=== PATIENT | male | born 1965 | race Caucasian/White ===

== ENCOUNTER 2016-10-28 09:49 | Inpatient (IN) | payer OTHER ==
[2016-10-22 11:28] VITALS: BMI 28.0
--- NOTE | 2016-10-22 12:43 | DIAGNOSTIC IMAGING REPORT ---
CHEST 2 VIEWS ROUTINE CLINICAL HISTORY: 50 years-old Male presenting with preoperative assessment. TECHNIQUE: PA and lateral views of the chest were obtained. COMPARISON: None. FINDINGS: Cardiomediastinal silhouette normal. Elevation of the left hemidiaphragm. Lungs and pleural spaces clear. Osseous structures normal. Upper abdomen normal. IMPRESSION: 1. No acute cardiopulmonary disease. Electronically signed by: Carlo Tiwari M.D. 10/22/2016 12:42 PM Dictated Date/Time: 10/22/2016 12:41 PM
[2016-10-22 12:55] LABS: BASO % 0.2 %; BASO ABS # 0.01 K/uL (0-0.2); COMPLETE YES; EOS % 0.9 %; HEMATOCRIT 47.4 % (42-52); IG% 0.2 %; LYMPH % 34.2 %; LYMPH ABS # 2.01 K/uL (1.2-3.4); MEAN CELL VOLUME 97.5 fL (80-100); MEAN CORPUSCULAR HEMOGLOBIN 31.3 pg (25-34); MEAN CORPUSCULAR HGB CONC 32.1 g/dl (32-36); MEAN PLATELET VOLUME 9.8 fL (7.4-10.4); MONO % 8.2 %; NEUT % 56.3 %; PLATELET COUNT 203 K/uL (130-400); RED BLOOD COUNT 4.86 M/uL (4.7-6.1); WHITE BLOOD COUNT 5.88 K/uL (4.8-10.8)
[2016-10-22 13:02] LABS: URINE APPEARANCE CLEAR (CLEAR); URINE BILIRUBIN NEG (NEG); URINE COLOR YELLOW; URINE NITRITE NEG (NEG); URINE SPECIFIC GRAVITY 1.009 (1.000-1.030); UROBILINOGEN NEG (NEG)
[2016-10-22 13:11] LABS: PROTHROMBIN TIME (PATIENT) 10.7 SECONDS (9.0-12.0)
[2016-10-22 13:14] LABS: MANUAL MICROSCOPIC REQUIRED? NO; REVIEW REQ? NO
[2016-10-22 13:24] LABS: BUN/CREATININE RATIO 11.3 (10-20); CALCIUM 9.2 mg/dl (8.5-10.1); CREATININE 0.97 mg/dl (0.60-1.40); POTASSIUM 4.4 mmol/L (3.5-5.1)
[2016-10-22 13:52] LABS: ESTIMATED AVERAGE GLUCOSE 117 mg/dl; HA1C FLAG Normal (Normal)
--- NOTE | 2016-10-27 12:13 | HISTORY & PHYSICAL EXAMINATION ---
DATE OF ADMISSION: 10/28/2016 CHIEF COMPLAINT: Left knee pain. HISTORY OF PRESENT ILLNESS: The patient is a 50-year-old gentleman with known osteoarthritis about his bilateral knees, left worse than right. He recently completed a series of viscosupplementation injections without relief. 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 He has ongoing pain and disability with activities of daily living and now desires to proceed with left total knee arthroplasty. PAST MEDICAL HISTORY: Denies. PAST SURGICAL HISTORY: Hernia repair, right foot, perforated ulcer, bilateral knee arthroscopy for meniscal pathology. MEDICATIONS: None. ALLERGIES: HE IS UNABLE TO TAKE ASPIRIN PRODUCTS DUE TO HISTORY OF PERFORATED ULCER. SOCIAL HISTORY AND REVIEW OF SYSTEMS: Noncontributory. PHYSICAL EXAMINATION: GENERAL: Well-nourished, well-developed male who appears his stated age. HEENT: Normocephalic, atraumatic, extraocular movements intact, oropharynx pink and moist. NECK: Supple without adenopathy. LUNGS: Clear to auscultation bilaterally. HEART: Regular rate and rhythm. ABDOMEN: Soft, nontender, nondistended. EXTREMITIES: The upper extremities are within normal limits. The bilateral knees have a slight varus alignment. He complains primarily of medial compartment pain. His range of motion is from 0 to 125 degrees. He has mild crepitus with range of motion. X-RAYS: X-rays were reviewed. He has near bone on bone arthritis of the medial compartment on the flexion view. He has mild degenerative changes about the patellofemoral joint as well. ASSESSMENT: Left knee degenerative joint disease. PLAN: Risks versus benefits were discussed. Consent was obtained. The patient's primary care physician is Dr. Newby. Will proceed with left total knee arthroplasty upon preoperative workup and medical clearance.
[2016-10-28] VITALS (8 sets, daily range): BP systolic 121–145; BP diastolic 80–99; PULSE 52–73; TEMP 36.2–37; O2SAT 95–99; Ht 182.9 cm; Wt 94.3 kg
[~2016-10-28] VITALS: Ht 182.9 cm; Wt 94.3 kg
[2016-10-28] MEDS: TRANEXAMIC ACID INJ 1,000 MG in SODIUM CHLORIDE 0.9% 100ML 100 ML IV SCH ×2 (06:30→11:25)
[~2016-10-28 09:49] MED LIST: ACETAMINOPHEN 500 MG TAB PO SCH; BUPIVACAINE 0.5 % 5 MG/1 ML PF 10ML VIAL ONE; CEFAZOLIN 2000 MG/60 ML D5W 60 ML IV SCH; DEXAMETHASONE 4 MG TAB PO SCH; FAMOTIDINE 20 MG TAB PO SCH; GABAPENTIN 300 MG CAP PO SCH; LACTATED RINGER'S 1000ML 1,000 ML IV SCH; LACTATED RINGER'S 1000ML 500 ML IV ONE; LACTATED RINGER'S 1000ML IV SCH; METOCLOPRAMIDE HCL 10 MG TAB PO SCH; ROPIVACAINE 0.5% 5 MG/ML 30 ML VIAL ONE; ROPIVACAINE 5MG/ML 30 ML 150 MG, BUPIVACAINE/EPINEPHR 0.5% MPF 30 ML, KETOROLAC TROMETH... INFIL SCH
--- NOTE | 2016-10-28 10:00 | History & Physical Bridge Note ---
H&P Re-Evaluation Bridge Note: I have examined the patient, reviewed the History & Physical and in the interval since the performance of the History & Physical I have noted the following changes of clinical significance: No changes noted
[2016-10-28] MEDS ORDERED: FENTANYL CITRATE INJ 50 MCG/1 ML 2 ML VIAL ONE (10:17)
[2016-10-28] MEDS ORDERED: PROPOFOL IV EMULSION 10 MG/ML 20 ML VIAL IV ONE ×2 (10:17→11:58)
[2016-10-28] MEDS ORDERED: MIDAZOLAM HCL 1 MG/ML 2ML VIAL ONE ×2 (10:17→11:20)
[2016-10-28] MEDS ORDERED: POVIDONE-IODINE OP SOLN 30 ML BTL ONE (11:33)
[2016-10-28] MEDS ORDERED: ORTHO JOINT ANESTHETIC ONE (11:33)
[2016-10-28] MEDS ORDERED: BACITRACIN 50000 UNIT VIAL ONE (11:34)
--- NOTE | 2016-10-28 12:53 | [facility] Post Operative Brief Note ---
Immediate Operative Summary Operative Date Oct 28, 2016. Pre-Operative Diagnosis Left knee degenerative joint disease Post-Operative Diagnosis same Procedure(s) Performed Left Total Knee Arthroplasty Surgeon Dr. Blanchard Fisher Trot Line Surgeon(s) Jagjit De La Fuente PA-C Estimated Blood Loss 10 ML Findings Bone on bone djd medial compartment Specimens a. left knee bone and tissue Complication(s) None Disposition Recovery Room / PACU
[2016-10-28] MEDS ORDERED: ATROPINE SULFATE 0.1 MG/ML 5ML SYR IV PRN (13:30)
[2016-10-28] MEDS ORDERED: PHENYLEPHRINE 100MCG/ML 5ML SYR IV PRN (13:30)
[2016-10-28] MEDS ORDERED: ONDANSETRON INJ 2 MG/ML 2 ML VIAL IV PRN ×2 (13:30→13:45)
[2016-10-28] MEDS ORDERED: EpHEDrine SULFATE INJ 50 MG/ML AMP IV PRN (13:30)
[2016-10-28] MEDS ORDERED: HYDROmorphone INJ 2 MG/ML SYR/VIAL IV PRN (13:30)
[2016-10-28] MEDS ORDERED: ALUMINUM/MAGNESIUM/SIMETH (MAALOX MAX) 30 ML UDC PO PRN (13:45)
[2016-10-28] MEDS ORDERED: MoRPHine SULFATE 2 MG/ML CARP IV PRN (13:45)
[2016-10-28] MEDS ORDERED: TAMSULOSIN HCL 0.4 MG CAP PO PRN (13:45)
[2016-10-28] MEDS ORDERED: MAGNESIUM HYDROXIDE SUSP 30 ML UDC PO PRN (13:45)
[2016-10-28] MEDS ORDERED: BISACODYL 10 MG SUPP PR PRN (13:45)
--- NOTE | 2016-10-28 14:04 | Anesthesiology Progress Note ---
Anesthesia Post Op Note Date & Time Oct 28, 2016 at 14:04 Vital Signs Pain Intensity: 0 Vital Signs Past 12 Hours Date Time Temp Pulse Resp B/P (MAP) Pulse Ox O2 Delivery O2 Flow Rate FiO2 10/28/16 14:00 63 20 134/107 98 Nasal Cannula 2 10/28/16 13:50 67 18 138/96 97 Oxymask 10 10/28/16 13:40 63 16 106/73 100 Oxymask 10 10/28/16 13:30 36.2 60 13 104/63 98 Oxymask 10 10/28/16 10:15 37 57 18 145/99 97 Room Air Notes Mental Status: alert / awake / arousable, participated in evaluation Pt Amnestic to Procedure: Yes Nausea / Vomiting: adequately controlled Pain: adequately controlled Airway Patency, RR, SpO2: stable & adequate BP & HR: stable & adequate Hydration State: stable & adequate Anesthetic Complications: no major complications apparent
--- NOTE | 2016-10-28 14:15 | OPERATIVE REPORT ---
DATE OF OPERATION: 10/28/2016 PREOPERATIVE DIAGNOSIS: Osteoarthritis, left knee. POSTOPERATIVE DIAGNOSIS: Osteoarthritis, left knee. PROCEDURE: Left Triathlon total knee arthroplasty, cementless. SURGEON: Dr. Blanchard. SUPERVISOR FIBERGLASS BOAT ASSEMBLY: MICHAEL Em ANESTHESIA: Genera. COMPLICATIONS: None. IMPLANTS USED: Femoral size 6 cementless, tibial size 5 cementless, tibial poly 11, and patella 36 cemented. OPERATION AND FINDINGS: Following induction of general anesthesia, the patient's left leg was prepped and draped in the usual sterile manner. Limb was exsanguinated with an Esmarch bandage and tourniquet was inflated to 350 mmHg. A longitudinal incision was made anteriorly. Subcutaneous tissue was sharply dissected. Electrocautery was used for hemostasis. Prepatellar bursa was incised and median parapatellar incision was performed. Patella was everted and the knee was flexed. Fat pad was removed to aid in visualization and the anterior and posterior cruciate ligaments were removed. The medial face of the tibia was cleared of soft tissue first with a Bovie and a Thomas elevator. This tissue was retracted posteriorly using a blunt Hohmann. A Welch retractor was used to expose the synovium above on the anterior aspect of the femur and this was removed down to bone. The PSI guide was placed on the distal femur and two pins were placed anteriorly and kept in position and two additional pins were placed distally and removed. The distal femoral cutting block was placed in position and the distal femoral cut was used in the +0 setting. Next, the cutting block was removed and the femoral 6 block was placed in the distal end of the femur. Care was taken to ensure appropriate external rotation and feeler gauge was used to ensure no notching would occur. The femoral block was centered on the distal femur and in the medial and lateral direction and was fixed using two bone screws. The gold pins were then removed. The oscillating saw was used to create the bone cuts and the distal femoral cutting block was removed and the reciprocating saw was used to further trim the femoral cuts as well as a deep in the area for the trochlear groove. Next, posterior condyle remnants were removed. Following this, a meniscal clamp and knife were utilized to remove the anterior portion of both medial and lateral meniscus. The proximal tibia PSI guide was placed into position and the proximal tibial cutting guide was screwed into position. The extra medullary alignment guide was utilized to ensure appropriate alignment. The proximal tibia was cut and the proximal tibial cutting block was removed and this bone fragment was removed. The appropriate guide was used to perform the notch cut on the distal femur and a lamina customer relationship specialist and a cochlear knife were utilized to finish both medial and lateral meniscectomies to remove any remnants of the posterior or anterior cruciate ligaments. Following this, the distal femoral component was impacted into position and blunt Fredy was used to sublux the tibia anteriorly. The proximal tibia was sized and a 5 cementless tibial tray was chosen as the size to be used. This was put into position and appropriate external rotation and a double check with extramedullary alignment guide was performed. The canal for the tibial stem was prepared first with a 17 mm drill and then the punch and a mallet and the trial tibial poly was placed. A 11 was chosen the size to be used. It was brought to extension and the patella was prepared with the patellar reamer. A 36 cemented component was chosen the size to be used. The trial component was placed and knee was taken through a full range of motion and there was found to be no lateral subluxation of the tibia. No lateral release was required. The trials were all removed. The final components were obtained and assembled. The wound was irrigated and closed over a Hemovac drain. #1 Vicryl was used to close the extensor mechanism. Subcutaneous tissues closed using 0 Dexon. Skin was closed with jesús. Sterile dressing of Adaptic, 4 x 4's, sterile Webril, and Quentin was applied. The patient tolerated the procedure well. Due to the complex nature of the procedure, the entire surgery was performed with the operational assistance of MICHAEL Em. The night assistant, under direct supervision, was involved in the actual performance of all aspects of the surgical procedure including hemostasis, tissue retraction and incision, instrument management, patient positioning, and wound closure. DISPOSITION: Recovery room stable. I attest to the content of the Intraoperative Record and any orders documented therein. Any exception s are noted below.
--- NOTE | 2016-10-28 14:50 | DIAGNOSTIC IMAGING REPORT ---
LEFT KNEE 1 OR 2 VIEWS ROUTINE CLINICAL HISTORY: AP/LATERAL IN PACU LEFT KNEE joint replacement COMPARISON: None. DISCUSSION: Anatomic alignment status post total left knee arthroplasty. Soft tissue postoperative change. Surgical drains in position. IMPRESSION: Anatomic alignment status post total left knee arthroplasty. The above report was generated using voice recognition software. It may contain grammatical, syntax or spelling errors. Electronically signed by: Israel Humphrey M.D. 10/28/2016 2:49 PM Dictated Date/Time: 10/28/2016 2:48 PM
[2016-10-28] MEDS ORDERED: MoRPHine SULFATE 4 MG/ML 1 ML CARP\\VIAL IV PRN (15:00)
[2016-10-28] MEDS ORDERED: MoRPHine SULFATE 10 MG/ML CARP/VIAL IV PRN (15:00)
[2016-10-28] MEDS: D5W AND 1/2NSS + 20MEQ KCL 1,000 ML IV SCH (16:16)
[2016-10-28] MEDS: ACETAMINOPHEN 500 MG TAB PO SCH (17:28)
[2016-10-28] MEDS: FERROUS GLUCONATE 324 MG TAB PO SCH (17:28)
[2016-10-28] MEDS: CEFAZOLIN IV 2,000 MG in DEXTROSE 5% 50ML 50 ML IV SCH (17:29)
[2016-10-28] MEDS: OXYCODONE HCL 10 MG TABCR (OXYCONTIN) PO SCH (21:18)
[2016-10-28] MEDS: SENNA 8.6 MG TAB PO SCH (21:19)
[2016-10-28] MEDS: DOCUSATE SODIUM 100 MG CAP PO SCH (21:19)
[2016-10-29] MEDS: ACETAMINOPHEN 500 MG TAB PO SCH ×3 (01:30→17:43)
[2016-10-29] MEDS: D5W AND 1/2NSS + 20MEQ KCL 1,000 ML IV SCH (01:30)
[2016-10-29] MEDS: CEFAZOLIN IV 2,000 MG in DEXTROSE 5% 50ML 50 ML IV SCH (01:31)
[2016-10-29 04:06] VITALS: BP 110/69; PULSE 56; TEMP 36.4; O2SAT 96
[2016-10-29 06:11] LABS: HEMATOCRIT 38.7 % (42-52); MEAN CELL VOLUME 97.2 fL (80-100); MEAN CORPUSCULAR HEMOGLOBIN 31.9 pg (25-34); MEAN CORPUSCULAR HGB CONC 32.8 g/dl (32-36); MEAN PLATELET VOLUME 9.5 fL (7.4-10.4); PLATELET COUNT 184 K/uL (130-400); RED BLOOD COUNT 3.98 M/uL (4.7-6.1); WHITE BLOOD COUNT 13.87 K/uL (4.8-10.8)
[2016-10-29 06:51] LABS: BUN/CREATININE RATIO 12.7 (10-20); CALCIUM 8.4 mg/dl (8.5-10.1); CREATININE 0.94 mg/dl (0.60-1.40); POTASSIUM 4.3 mmol/L (3.5-5.1)
[2016-10-29 07:18] VITALS: BP 113/72; PULSE 70; TEMP 36.4; O2SAT 98
--- NOTE | 2016-10-29 07:35 | Orthopedic Progress Note ---
Orthopedic Progress Note Date of Service Oct 29, 2016. Subjective Post OP Day: 1 Reports: feeling well (Pt states left foot still numb) Objective dressing C/D/I (Hemovac in place) Pt with minimal active ROM left ankle Date Time Temp Pulse Resp B/P (MAP) Pulse Ox O2 Delivery O2 Flow Rate FiO2 10/29/16 07:18 36.4 70 16 113/72 (86) 98 Room Air 10/29/16 04:06 36.4 56 16 110/69 (83) 96 Room Air 10/29/16 00:17 Room Air 10/28/16 23:40 36.4 68 16 121/85 (97) 95 Room Air 10/28/16 20:10 Room Air 10/28/16 19:24 36.4 61 17 125/80 (95) 98 Room Air 10/28/16 17:38 36.2 73 16 125/90 (102) 98 Nasal Cannula 2.5 10/28/16 16:36 36.3 60 16 123/81 (95) 98 Nasal Cannula 2.5 10/28/16 16:26 70 16 125/80 (95) 99 Nasal Cannula 2.0 10/28/16 15:43 36.3 54 16 124/85 (98) 99 Nasal Cannula 2.5 10/28/16 14:35 Nasal Cannula 10/28/16 14:35 98 Nasal Cannula 2.0 10/28/16 14:35 52 16 127/81 (96) 99 Nasal Cannula 2.0 10/28/16 14:35 36.3 54 14 135/81 (99) 98 Nasal Cannula 2.0 10/28/16 14:20 36.4 53 23 109/79 98 Nasal Cannula 2 10/28/16 14:10 61 18 123/84 98 Nasal Cannula 2 10/28/16 14:00 63 20 134/107 98 Nasal Cannula 2 10/28/16 13:50 67 18 138/96 97 Oxymask 10 10/28/16 13:40 63 16 106/73 100 Oxymask 10 10/28/16 13:30 36.2 60 13 104/63 98 Oxymask 10 10/28/16 10:15 37 57 18 145/99 97 Room Air Laboratory Results 24 Hours: Test 10/29/16 05:50 Hematocrit 38.7 % Hemoglobin 12.7 g/dL Assessment & Plan Assessment: 51 yo male stable POD #1 s/p left TKA, left foot still numb with minimal active ROM Plan: 1. Med management 2. DVT prophylaxis- Irma Phillips 3. PT/OT 4. D/C planning- home w/ HH
--- NOTE | 2016-10-29 08:00 | Anesthesiology Progress Note ---
Anesthesia Post Op Note Date & Time Oct 29, 2016 at 08:00 Vital Signs Pain Intensity: 0.0 Vital Signs Past 12 Hours Date Time Temp Pulse Resp B/P (MAP) Pulse Ox O2 Delivery O2 Flow Rate FiO2 10/29/16 07:18 36.4 70 16 113/72 (86) 98 Room Air 10/29/16 04:06 36.4 56 16 110/69 (83) 96 Room Air 10/29/16 00:17 Room Air 10/28/16 23:40 36.4 68 16 121/85 (97) 95 Room Air 10/28/16 20:10 Room Air Notes Mental Status: alert / awake / arousable, participated in evaluation Pt Amnestic to Procedure: Yes Nausea / Vomiting: adequately controlled Pain: adequately controlled Airway Patency, RR, SpO2: stable & adequate BP & HR: stable & adequate Hydration State: stable & adequate Neuraxial Anesthesia: sensory block resolved Anesthetic Complications: no major complications apparent
[2016-10-29] MEDS: MULTIVITAMIN TAB PO SCH (08:34)
[2016-10-29] MEDS: PANTOprazole SOD 40 MG TAB PO SCH (08:34)
[2016-10-29] MEDS: FERROUS GLUCONATE 324 MG TAB PO SCH ×3 (08:34→17:42)
[2016-10-29] MEDS: DOCUSATE SODIUM 100 MG CAP PO SCH ×2 (08:35→21:54)
[2016-10-29] MEDS: RIVAROXABAN 10 MG TAB PO SCH (08:35)
[2016-10-29] MEDS: OXYCODONE HCL 10 MG TABCR (OXYCONTIN) PO SCH ×2 (08:38→20:26)
[2016-10-29 09:21] VITALS: BP 143/84; PULSE 67
[2016-10-29] MEDS: OXYCODONE HCL IR 5 MG TAB (IMMEDIATE RELEASE) PO PRN ×3 (10:57→22:18)
[2016-10-29 11:42] VITALS: BP 116/75; PULSE 65; TEMP 36.7; O2SAT 100
--- NOTE | 2016-10-29 14:38 | Discharge Instructions ---
Discharge Instructions Date of Service Oct 29, 2016. Admission Reason for Admission: Left Knee Osteoarthritis Discharge Discharge Diagnosis / Problem: Left knee arthritis Discharge Goals Goal(s): Decrease discomfort, Improve function Activity Recommendations Activity Limitations: as noted below Weightbearing Status: Left weightbearing (as tolerated) . Instructions / Follow-Up Instructions / Follow-Up ACTIVITY RECOMMENDATIONS: SELF CARE INSTRUCTIONS AFTER TOTAL KNEE REPLACEMENT A. You may need to continue a physical therapy program after discharge from the hospital. There are several options available to you. Your doctor will assist you in selecting the best one for you. 1. An out-patient facility 2 to 3 times a week for therapy or home therapy. 2. Continue working on all exercises taught to you in the hospital. Your goals should be to increase bending of your knee to 90 degrees and beyond and to fully straighten your knee. B. You may progress at your own pace from walking with a walker or crutches to a cane; then to no assistive devices. C. Make walking a part of your daily routine. Be up as much as comfortable with rest periods throughout the day. Rest with leg elevation is very important. Use the ice wrap frequently for the first 3-4 weeks. D. There are no restrictions on activities. You may ride in a car, shop, participate in nuclear plant instrument technician and all social activities. E. Wear the long elastic stockings (ALMA hose) 20 hours a day for 2 weeks after surgery. They can be removed several times a day for laundering and for a bath. F. YOU MAY SHOWER IN 72 HOURS FROM THE DAY OF SURGERY. NO DIRECT SHOWER PRESSURE ON THE WOUND. CLEAN AROUND IT WITH MILD SOAP AND PAT DRY. RECOVER THE WOUND NOTED BELOW. NO TUB BATHS. NO HOT TUBS OR SWIMMING POOLS UNTIL CLEARED BY YOUR PHYSICIAN. SPECIAL CARE INSTRUCTIONS: VERY IMPORTANT TO READ AND REVIEW A. There are a few signs you need to watch for after you are home. Call [facility] if you notice any of the followin. Increased severe knee pain. Some pain is expected especially when you exercise. 2. Increased swelling in your leg or knee; pain or swelling of the calf muscle in either lower leg. 3. Any fluid drainage from the incision. 4. Shortness of breath or chest pain. B. Please call [facility] at if you have any concerns or questions about your operation or recovery. The doctor or his nurse will return your call promptly. C. You must take antibiotics before dental work, bladder, bowel or other surgery. Your doctor will provide you with a permanent care to carry describing this precaution. IMPORTANT: * REMEMBER TO TAKE ASPIRIN, 81 MG, TWICE DAILY FOR 4 WEEKS UNLESS OTHERWISE DIRECTED. THIS IS YOUR BLOOD THINNER. * HIGH RISK PATIENTS MAY BE PRESCRIBED A STRONGER BLOOD THINNER. THIS WILL BE PROVIDED AT DISCHARGE. * CALL IF INCREASED PAIN, REDNESS, DRAINAGE OR FEVER GREATER THAT 101. * WEAR ALMA HOSE 20 HOURS PER DAY FOR 2 WEEKS. * CHANGE YOUR DESSING DAILY WHILE IF IT IS CONTINUES TO HAVE DRAINAGE. ONCE YOU HAVE NO DRAINAGE, YOU MAY CHANGE EVERY OTHER DAY. YOU HAVE A ZIP CLOSURE SYSTEM INSTEAD OF SHABBIR. THIS WILL REMAIN ON FOR 14 DAYS AND THEN WILL BE REMOVED IN THE OFFICE UNLESS YOU ARE INSTRUCTED OTHERWISE BY THE OFFICE. KEEP THE WOUND COVERED DURING THIS TIME. IT WILL PROTECT YOUR WOUND AND THE ZIP CLOSURE SYSTEM. CALL WITH ANY CHANGES IN YOUR WOUND OR WOUND DRAINAGE THAT IS INCREASING OR HAS CHANGED IN CONSISTENCY. FOLLOW UP VISIT: If appointment is not already scheduled: Please call [facility] to make a follow-up appointment for 2 weeks after your surgery at . Current Hospital Diet Patient's current hospital diet: Regular Diet Discharge Diet Recommended Diet: Regular Diet Procedures Procedures Performed: Left Total Knee Arthroplasty Pending Studies Studies pending at discharge: no Laboratory Results Hemoglobin A1c Test 10/22/16 12:10 Range/Units Estimated Average Glucose 117 mg/dl Hemoglobin A1c 5.7 H 4.5-5.6 % Medical Emergencies . Who to Call and When: Medical Emergencies: If at any time you feel your situation is an emergency, please call 911 immediately. . Non-Emergent Contact Non-Emergency issues call your: Surgeon Call Non-Emergent contact if: temperature is above 101.5, your pain is not controlled, wound has increased drainage, wound has increased redness . "Provider Documentation" section prepared by Deni Whaley PA-C. . VTE Core Measure Inpt VTE Proph given/why not?: Other Anticoagulation (Xarelto), T.E.D. Stockings, SCD's [place] Drug Monitoring Program Search Results: patient reviewed within database, no issues identified
[2016-10-29 15:50] VITALS: BP 120/80; PULSE 71; TEMP 36.8; O2SAT 98
[2016-10-29] MEDS: SENNA 8.6 MG TAB PO SCH (21:54)
[2016-10-29 23:32] VITALS: BP 113/68; PULSE 65; TEMP 36.5; O2SAT 97
[2016-10-30] MEDS: ACETAMINOPHEN 500 MG TAB PO SCH ×2 (02:00→09:34)
[2016-10-30 06:28] VITALS: BP 120/82; PULSE 101; TEMP 36.6; O2SAT 98
[2016-10-30] MEDS: FERROUS GLUCONATE 324 MG TAB PO SCH (08:30)
[2016-10-30] MEDS: OXYCODONE HCL 10 MG TABCR (OXYCONTIN) PO SCH (08:43)
[2016-10-30] MEDS: RIVAROXABAN 10 MG TAB PO SCH (08:43)
[2016-10-30] MEDS: MULTIVITAMIN TAB PO SCH (08:43)
[2016-10-30] MEDS: DOCUSATE SODIUM 100 MG CAP PO SCH (08:43)
--- NOTE | 2016-10-30 09:06 | Orthopedic Progress Note ---
Orthopedic Progress Note Date of Service Oct 30, 2016. Subjective Post OP Day: 2 Reports: feeling well, Denies: complaints Objective calves soft nontender, N/V intact, dressing C/D/I, A&O x3, toes mobile Date Time Temp Pulse Resp B/P (MAP) Pulse Ox O2 Delivery O2 Flow Rate FiO2 10/30/16 07:29 Room Air 10/30/16 06:28 36.6 101 17 120/82 (95) 98 Room Air 10/29/16 23:32 36.5 65 17 113/68 (83) 97 Room Air 10/29/16 22:15 Room Air 10/29/16 16:00 Room Air 10/29/16 15:50 36.8 71 17 120/80 (93) 98 Room Air 10/29/16 11:42 36.7 65 16 116/75 (89) 100 Room Air 10/29/16 09:21 67 143/84 (103) Assessment & Plan Assessment: 51 yo male stable POD #2 s/p left TKA, Foot drop resolved Plan: 1. Med management 2. DVT prophylaxis- BARBARA Phillipss 3. PT/OT 4. D/C planning- home w/ HH Inhouse Planning Pain Management: Oxycontin, Morphine, PO Tylenol, Oxy IR DVT Prophylaxis: ALMAs SCDs Xarelto Discharge Planning Discharge Planning: home with home health Pain Management: Oxycontin, PO Tylenol, Oxy IR DVT Prophylaxis: ALMAsRichellereljennifer Therapy: Physical Therapy
[2016-10-30] MEDS ORDERED: SNK PO (09:10)
[2016-10-30] MEDS ORDERED: ACET-24 PO (09:10)
[2016-10-30] MEDS ORDERED: RXC5 PO (09:10)
[2016-10-30] MEDS ORDERED: XRL10 PO ×2 (09:10→11:23)
[2016-10-30] MEDS ORDERED: OXYSR10 PO (09:10)
[2016-10-30] MEDS: PANTOprazole SOD 40 MG TAB PO SCH (09:24)
[2016-10-30] MEDS ORDERED: ACETAMINOPHEN 500 MG TAB PO ONE (09:33)
[2016-10-30 10:18] VITALS: BP 120/82; PULSE 101; TEMP 36.6; O2SAT 98
[2016-10-30 11:15] VITALS: BP 129/68; PULSE 76; O2SAT 98
[2016-11-04] MEDS ORDERED: PANT40TA PO (08:57)
[2016-11-04] MEDS ORDERED: OXYC20TA50 PO (08:57)
[2016-11-04] MEDS ORDERED: MULT-506 PO (08:57)
[2016-11-04] MEDS ORDERED: SNK PO (08:57)
[2016-11-04] MEDS ORDERED: ACET-1256 PO (08:57)
--- NOTE | 2016-11-05 00:18 | DISCHARGE SUMMARY ---
DISCHARGE DIAGNOSIS: Degenerative joint disease, left knee. CONSULTS: None. COMPLICATIONS: None. PROCEDURES: Left total knee arthroplasty performed by Dr. Blanchard on 10/28/2016. BRIEF HISTORY: As dictated in the history and physical. HOSPITAL SUMMARY: The patient was admitted on the above noted date and had the above noted surgery performed which he tolerated well. On the first postoperative day, patient was feeling well and stated that he was having numbness in his operative foot. Dressings clean, dry and intact. He had minimal active range of motion of the left ankle. Vital signs were stable. He was afebrile. Hemoglobin was 12.7. He was started on physical therapy protocol and continued on DVT prophylaxis and pain management. His footdrop was likely due to intraoperative injection and plans were to watch for now at that time. By his second postoperative day, he was feeling well and had no complaints. Calves were soft, nontender, neurovascularly intact. Dressings clean, dry and intact. Toes were mobile. His footdrop was totally resolved and he had good strength in that foot. Vital signs were stable. He was afebrile and he was progressing well with his physical therapy and it was felt he could be discharged to home with home health services. For further review, please see chart. LAB AND X-RAY DATA: As per chart. DISCHARGE INSTRUCTIONS: The patient was discharged to home in satisfactory condition on 10/30/2016. DIET: Regular. ACTIVITY: Weightbearing as tolerated left lower extremity. Follow TK instruction sheets and special care instructions as noted, and follow up with Dr. Blanchard in 2 weeks, patient to call for appointment if one has not been made for you.
== END 2016-10-30 12:04 | disposition home health service (06) | DRG 470 ==
LOC: C.ACU 09:49 → C.3E 13:39 → ENRESERV 14:05
PROC: 0SRD0JA Replacement of Left Knee Joint with Synthetic Substitute, Uncemented, Open Approach (ICD-10-PCS; principal; 2016-10-28 11:45)
DX: M17.12 Unilateral primary osteoarthritis, left knee (principal)

== ENCOUNTER 2018-09-14 10:51 | Inpatient (IN) ==
--- NOTE | 2018-09-06 15:57 | PAT Medication Instructions ---
Medication Instructions Date of Service September 06, 2018 Home Medications naproxen 250 mg PO BID PRN naproxen sodium [Aleve] 220 mg PO BID PRN ASK your surgeon for instructions naproxen 250 mg PO BID PRN naproxen sodium [Aleve] 220 mg PO BID PRN Other Notes If you have any questions please call us at [phone] or [phone] or [phone] or [phone]
--- NOTE | 2018-09-07 09:32 | Anesthesiology Consultation ---
Date of Service September 07, 2018 Assessment & Plan (1) Encounter for pre-operative examination: Chart Review Chart Review: Acceptable Risk for Surgery (pending surgeon-ordered PCP clearance scheduled 09/07 (Dr. Banks; [place])) and Patient seen in Pre Admission Testing Teaching & Discussion Pre-Anesthesia Teaching/Discussion Notes: Instructed NPO after midnight before surgery,except medications with 15 cc of water. Medication instructions provided according to the PAT guidelines. History Surgery Operation Date: 09/14/18 09:35 Proposed Procedures p Left Shoulder Resurfacing Hemiarthroplasty - Carlo Hillman MD Height/Weight Height: 6 ft Weight: 94 kg Allergies Allergy/AdvReac Type Severity Reaction Status Date / Time aspirin AdvReac Unknown ADVISED TO Verified 09/07/18 09:35 AVOID HX STOMACH ULCER Medications Home Medications Medication Instructions Recorded Confirmed Last Taken naproxen sodium [Aleve] 220 mg PO BID PRN 08/01/18 08/01/18 Unknown meloxicam 15 mg PO DAILY PRN 09/07/18 09/07/18 Unknown Past Medical History Medical History History of stomach ulcers Remote hx 10 years ago- gastric ulcer bleed/perforation s/p abdominal surgery Exercise / Class Metabolic Activity II 4-5 Yardwork/Stairs/Walk up hill Past Surgical History Surgical History History of carpal tunnel release of both wrists History of hernia surgery LEFT INGUINAL History of total bilateral knee replacement Hx of abdominal surgery 2/2 bleeding gastric ulcer Hx of colonoscopy Hx of foot surgery RIGHT - D/T TRAUMATIC INJURY Past Anesthesia History No Hx of Anesthesia Complications and No Family Hx of Anesthesia Complications History of PONV No Hx of PONV and No Hx of Motion Sickness Social History Smoking Status: Never smoker Do You Dip or Chew Tobacco: Yes ("1 pinch"/day- advised NPO AM DOS) Hx Alcohol Use: Yes Alcohol type: beer alcohol intake frequency: a few times a month Hx Substance Use: No Review of Systems URI symptoms improving with OTC cold and flu medication. Patient denies chest pain, shortness of breath, dyspnea on exertion, reflux, wheezing, palpitations. Physical Exam Vital Signs VITALS BP 152/92 P 67 TEMP 98.1 SP02 97%RA RESP 18 Patient advised to followup with PCP regarding elevated BP. PHYSICAL Full neck and c-spine range of motion. Full TMJ range of motion. TMD 3 finger breaths Mallampati Score 1 Dentition: intact Lungs: clear throughout to auscultation Cardiac: regular rate and rhythm, no murmurs noted Spine: normal Carotid arteries: negative bruit Extremities: no edema Testing Laboratory Results 09/07/18 09:55 09/07/18 09:55 PT 10.6 Seconds (9.0-12.0) 09/07/18 09:55 INR 1.0 (0.9-1.1) 09/07/18 09:55 APTT 27.6 Seconds (21.0-31.0) 09/07/18 09:55 Hemoglobin A1c 5.7 % (4.5-5.6) H 09/07/18 09:55 Urine Color Yellow 09/07/18 Unknown Urine Appearance Clear (Clear) 09/07/18 Unknown Urine pH 5.5 (4.5-7.5) 09/07/18 Unknown Ur Specific [place] 1.022 (1.000-1.030) 09/07/18 Unknown Urine Protein Negative (Negative) 09/07/18 Unknown Urine Glucose (UA) Negative (Negative) 09/07/18 Unknown Urine Ketones Negative (Negative) 09/07/18 Unknown Urine Nitrite Negative (Negative) 09/07/18 Unknown Ur Leukocyte Esterase Negative (Negative) 09/07/18 Unknown Blood Type O Negative 09/07/18 09:55 Antibody Screen NEGATIVE 09/07/18 09:55 09/07/18 Unknown Urine Culture - Final Urine,Clean Catch No growth - less than 1,000 colonies/mL. Electrocardiogram Date: 09/07/18 Findings: + NSR @ (60) Chest X-Ray Date: 09/07/18 Findings: + NAD
--- NOTE | 2018-09-07 10:33 | XRay Report ---
XR chest Pre-admission PA/Lat CLINICAL HISTORY: pat preoperative evaluation COMPARISON STUDY: No previous studies for comparison. FINDINGS: The bones soft tissues and hemidiaphragms are normal. The cardiomediastinal silhouette is n ormal. The lungs are clear. The pulmonary vasculature is normal. IMPRESSION: Negative chest. The above report was generated using voice recognition software. It may contain grammatical, syntax or spelling errors. Electronically signed by: Israel Humphrey M.D. 09/07/2018 10:31 AM
[2018-09-07 11:14] LABS: Basophils # (auto) 0.02 K/uL (0-0.2); Basophils % (auto) 0.3 %; Eosinophils # (auto) 0.13 K/uL (0-0.5); Eosinophils % (auto) 1.7 %; Hematocrit (blood only) 44.3 % (42-52); Hemoglobin 15.2 g/dL (14.0-18.0); Immature Granulocytes # (auto) 0.01 K/uL (0.00-0.02); Immature Granulocytes % (auto) 0.1 %; Lymphocytes # (auto) 1.73 K/uL (1.2-3.4); Lymphocytes % (auto) 22.9 %; Mean Corpuscular Hgb Conc 34.3 g/dL (32-36); Mean Corpuscular Volume 97.4 fL (80-100); Mean Platelet Volume 10.5 fL (7.4-10.4); Monocytes # (auto) 0.69 K/uL (0.11-0.59); Monocytes % (auto) 9.1 %; Neutrophils # (auto) 4.98 K/uL (1.4-6.5); Neutrophils % (auto) 65.9 %; Platelet Count 204 K/uL (130-400); RDW Coefficient of Variation 13.3 % (11.5-14.5); RDW Standard Deviation 47.4 fL (36.4-46.3); Red Blood Count 4.55 M/uL (4.7-6.1); White Blood Count 7.56 K/uL (4.8-10.8)
[2018-09-07 11:15] LABS: Appearance Urine Clear (Clear); Bilirubin Urine Negative (Negative); Blood Urine Negative (Negative); Color Urine Yellow; Glucose Urine UA Negative (Negative); Ketones Urine Negative (Negative); Leukocyte Esterase Urine Negative (Negative); Nitrite Urine Negative (Negative); Protein Urine Negative (Negative); Specific Gravity Urine 1.022 (1.000-1.030); Urobilinogen Urine Negative (Negative); pH Urine 5.5 (4.5-7.5)
[2018-09-07 11:24] LABS: Partial Thromboplastin Time 27.6 Seconds (21.0-31.0); Prothrombin Time 10.6 Seconds (9.0-12.0)
[2018-09-07 11:25] LABS: Albumin Level 3.9 gm/dl (3.4-5.0); BUN Creatinine Ratio 26.6 (10-20); Creatinine Clr Calc Pharmacy 118.2 ml/min; Est GFR (Non-African American) 99.2; Potassium 4.3 mmol/L (3.5-5.1)
[2018-09-07 12:05] LABS: Estimated Average Glucose 117 mg/dl; Hemoglobin A1C 5.7 % (4.5-5.6)
--- NOTE | 2018-09-09 08:31 | History & Physical Report ---
Date of Service September 09, 2018 Assessment & Plan (1) Primary osteoarthritis, left shoulder: Patient is [id number] glenohumeral joint. He has significant pain and dysfunction with daily activity. Treatment options discussed. He has failed conservative measures as above. He would like to proceed with surgical intervention. Risks, benefits and alternatives to surgery including but not limited to infection, DVT, pain, stiffness, need for revision surgery, damage to blood vessels, damage to nerves, PE, , were discussed with the patient and they wish to proceed. Plan will be for left total shoulder arthroplasty. Plans on outpatient PT upon discharge. All questions answered. He will follow up post operatively. History of Present Illness Chief Complaint: Left shoulder pain Primary Care Provider: Eliezer Banks Jr, MD Patient is 52 year old male with no significant past medical history has long standing history of bilateral shoulder pain. He has failed conservative measures including cortisone injections and anti-inflammatory medications. He has significant osteoarthritis of his shoulders. Pain is worse in left than right. He is having difficulty doing daily acitivity. He would like to proceed with surgical intervention. Patient denies headaches, sweats, fevers, chills, double vision, blurred vision, cough, sore throat, dysphagia, chest pain, sob, wheezing, n/v/d/c, numbness, tingling, fatigue, urinary symptoms, mood disorders. ROS positive for bilateral pain and stiffness. Allergies Allergy/AdvReac Type Severity Reaction Status Date / Time aspirin AdvReac Unknown ADVISED TO Verified 09/07/18 09:35 AVOID HX STOMACH ULCER Home Medications Home Medications Medication Instructions Recorded Confirmed Type naproxen sodium [Aleve] 220 mg PO BID PRN 08/01/18 08/01/18 History meloxicam 15 mg PO DAILY PRN 09/07/18 09/07/18 History Past Med/Surg History Medical History History of stomach ulcers Remote hx 10 years ago- gastric ulcer bleed/perforation s/p abdominal surgery Surgical History History of carpal tunnel release of both wrists History of hernia surgery LEFT INGUINAL History of total bilateral knee replacement Hx of abdominal surgery 2/2 bleeding gastric ulcer Hx of colonoscopy Hx of foot surgery RIGHT - D/T TRAUMATIC INJURY Social History Preferred Language: Prydeinig Communication Ability: Effective Beliefs That Will Affect Care: None Current Living Situation: Spouse Feels Safe at Home: Yes Safety Concerns: Feels Safe At This Time Smoking Status: Never smoker Tobacco Type: smokeless tobacco Do You Dip or Chew Tobacco: Yes ("1 pinch"/day- advised NPO AM DOS) Second Hand Exposure: No Hx Alcohol Use: Yes Alcohol type: beer Hx Substance Use: No Review of Systems All systems reviewed & are unremarkable except as noted in HPI & below Physical Exam Constitutional: well developed and well nourished; no acute distress Eyes: PERRL, conjunctivae normal, anicteric sclerae ENMT: external ear and nose normal, oropharynx normal Neck: trachea midline, no thyromegaly Respiratory: normal respiratory effort, lungs clear to auscultation Cardiovascular: RRR, no murmur, no edema Musculoskeletal: Left shoulder-Decreased active and passive ROM secondary to pain, strength is mildly decreased, RTC strength well preserved. Crepitus noted with ROM. Positive impingement signs. Skin: no rashes, warm and dry Neurologic: patellar DTR's 2+ bilat, sensation intact Psychiatric: A+Ox3, euthymic affect Results & Data Laboratory Results Lab Results 09/07/18 09/07/18 09/07/18 Range/Units 09:55 09:55 09:55 WBC 7.56 (4.8-10.8) K/uL RBC 4.55 L (4.7-6.1) M/uL Hgb 15.2 (14.0-18.0) g/dL Hct 44.3 (42-52) % MCV 97.4 (80-100) fL MCH 33.4 (25-34) pg MCHC 34.3 (32-36) g/dL RDW Std Deviation 47.4 H (36.4-46.3) fL RDW Coeff of Gerry 13.3 (11.5-14.5) % Plt Count 204 (130-400) K/uL MPV 10.5 H (7.4-10.4) fL Immature Gran % (Auto) 0.1 % Neut % (Auto) 65.9 % Lymph % (Auto) 22.9 % Morrill % (Auto) 9.1 % Eos % (Auto) 1.7 % Baso % (Auto) 0.3 % Immature Gran # (Auto) 0.01 (0.00-0.02) K/uL Neut # (Auto) 4.98 (1.4-6.5) K/uL Lymph # (Auto) 1.73 (1.2-3.4) K/uL Morrill # (Auto) 0.69 H (0.11-0.59) K/uL Eos # (Auto) 0.13 (0-0.5) K/uL Baso # (Auto) 0.02 (0-0.2) K/uL PT 10.6 (9.0-12.0) Seconds INR 1.0 (0.9-1.1) APTT 27.6 (21.0-31.0) Seconds PTT Ratio 1.0 Sodium 137 (136-145) mmol/L Potassium 4.3 (3.5-5.1) mmol/L Chloride 106 (98-107) mmol/L Carbon Dioxide 26 (21-32) mmol/L Anion Gap 5.0 (3-11) BUN 23 H (7-18) mg/dl Creatinine 0.87 (0.6-1.4) mg/dl Est Cr Clr Drug Dosing 118.2 ml/min Est GFR ( Amer) 115.0 Est GFR (Non-Af Amer) 99.2 BUN/Creatinine Ratio 26.6 H (10-20) Glucose 92 (70-99) mg/dl Estimat Average Glucose mg/dl Hemoglobin A1c (4.5-5.6) % Calcium 9.0 (8.5-10.1) mg/dl Albumin 3.9 (3.4-5.0) gm/dl Urine Color Urine Appearance (Clear) Urine pH (4.5-7.5) Ur Specific [place] (1.000-1.030) Urine Protein (Negative) Urine Glucose (UA) (Negative) Urine Ketones (Negative) Urine Blood (Negative) Urine Nitrite (Negative) Urine Bilirubin (Negative) Urine Urobilinogen (Negative) Ur Leukocyte Esterase (Negative) Blood Type Antibody Screen 09/07/18 09/07/18 09/07/18 Range/Units 09:55 09:55 Unknown WBC (4.8-10.8) K/uL RBC (4.7-6.1) M/uL Hgb (14.0-18.0) g/dL Hct (42-52) % MCV (80-100) fL MCH (25-34) pg MCHC (32-36) g/dL RDW Std Deviation (36.4-46.3) fL RDW Coeff of Gerry (11.5-14.5) % Plt Count (130-400) K/uL MPV (7.4-10.4) fL Immature Gran % (Auto) % Neut % (Auto) % Lymph % (Auto) % Morrill % (Auto) % Eos % (Auto) % Baso % (Auto) % Immature Gran # (Auto) (0.00-0.02) K/uL Neut # (Auto) (1.4-6.5) K/uL Lymph # (Auto) (1.2-3.4) K/uL Morrill # (Auto) (0.11-0.59) K/uL Eos # (Auto) (0-0.5) K/uL Baso # (Auto) (0-0.2) K/uL PT (9.0-12.0) Seconds INR (0.9-1.1) APTT (21.0-31.0) Seconds PTT Ratio Sodium (136-145) mmol/L Potassium (3.5-5.1) mmol/L Chloride (98-107) mmol/L Carbon Dioxide (21-32) mmol/L Anion Gap (3-11) BUN (7-18) mg/dl Creatinine (0.6-1.4) mg/dl Est Cr Clr Drug Dosing ml/min Est GFR ( Amer) Est GFR (Non-Af Amer) BUN/Creatinine Ratio (10-20) Glucose (70-99) mg/dl Estimat Average Glucose 117 mg/dl Hemoglobin A1c 5.7 H (4.5-5.6) % Calcium (8.5-10.1) mg/dl Albumin (3.4-5.0) gm/dl Urine Color Yellow Urine Appearance Clear (Clear) Urine pH 5.5 (4.5-7.5) Ur Specific [place] 1.022 (1.000-1.030) Urine Protein Negative (Negative) Urine Glucose (UA) Negative (Negative) Urine Ketones Negative (Negative) Urine Blood Negative (Negative) Urine Nitrite Negative (Negative) Urine Bilirubin Negative (Negative) Urine Urobilinogen Negative (Negative) Ur Leukocyte Esterase Negative (Negative) Blood Type O Negative Antibody Screen NEGATIVE Diagnostic Findings Left shoulder: [id number] glenohumeral joint with periarticular osteophyte formation
[~2018-09-14 10:51] MED LIST changes: -BUPIVACAINE 0.5 % 5 MG/1 ML PF 10ML VIAL ONE; -CEFAZOLIN 2000 MG/60 ML D5W 60 ML IV SCH; +CEFAZOLIN 2000MG 2,000 MG/15 ML SYR IV SCH; +CeleBREX 200 MG CAP PO SCH; -DEXAMETHASONE 4 MG TAB PO SCH; -GABAPENTIN 300 MG CAP PO SCH; +GABAPENTIN 900 MG DOSE PO SCH; -LACTATED RINGER'S 1000ML 1,000 ML IV SCH; -LACTATED RINGER'S 1000ML 500 ML IV ONE; -LACTATED RINGER'S 1000ML IV SCH; +LR 15ML/HR IV SCH; -METOCLOPRAMIDE HCL 10 MG TAB PO SCH; +METOCLOPRAMIDE HCL 10 MG TABLET PO SCH; -ROPIVACAINE 5MG/ML 30 ML 150 MG, BUPIVACAINE/EPINEPHR 0.5% MPF 30 ML, KETOROLAC TROMETH... INFIL SCH; +dexAMETHasone 4 MG TAB PO SCH
[2018-09-14] MEDS ORDERED: MIDAZOLAM HCL 1 MG/ML 2ML VIAL ONE ×2 (11:12→12:57)
[2018-09-14] MEDS ORDERED: fentaNYL citrate 100 MCG/2 ML VIAL ONE ×2 (11:12→15:33)
--- NOTE | 2018-09-14 11:59 | History & Physical Bridge Note ---
Date of Service September 14, 2018 History & Physical Bridge Note I have examined the patient, reviewed the History & Physical and in the interval since the performance of the History & Physical I have noted the following changes of clinical significance: no changes noted
[2018-09-14] MEDS ORDERED: GABAPENTIN 300 MG CAP ONE (12:11)
[2018-09-14] MEDS ORDERED: CeleBREX 200 MG CAP ONE (12:11)
[2018-09-14] MEDS ORDERED: FAMOTIDINE 20 MG TAB ONE (12:11)
[2018-09-14] MEDS ORDERED: dexAMETHasone 4 MG TAB PO ONE (12:11)
[2018-09-14] MEDS ORDERED: ACETAMINOPHEN 500 MG TAB ONE (12:12)
[2018-09-14] MEDS ORDERED: METOCLOPRAMIDE HCL 10 MG TABLET ONE (12:12)
[2018-09-14] MEDS ORDERED: TRANEXAMIC ACID 1,000 MG **IV Pre-op IV SCH (12:15)
[2018-09-14] MEDS ORDERED: ROPIVACAINE 0.5% HCL/PF 150 MG, BUPIVACAINE 0.5% MPF 30 ML, EPINEPHrine 30MG/30ML (OR U... INSTIL SCH (12:15)
[2018-09-14] MEDS ORDERED: TRANEXAMIC ACID 1,000 MG **IV Intra-op IV ONE (12:15)
[2018-09-14] MEDS ORDERED: BACITRACIN INJ 50,000 UNIT VIAL ONE (12:48)
[2018-09-14] MEDS ORDERED: THROMBIN FOR SOLN 20000 UNIT KIT ONE (12:48)
[2018-09-14] MEDS ORDERED: VANCOMYCIN HCL 1000MG/20ML VIAL ONE (12:48)
[2018-09-14] MEDS ORDERED: LIDOCAINE HCL 2% 2 ML VIAL/AMP(20MG/ML) INFIL ONE (13:34)
[2018-09-14] MEDS ORDERED: DEXAMETHASONE SOD INJ 4 MG/ML VIAL ONE (13:35)
[2018-09-14] MEDS ORDERED: ONDANSETRON INJ 2 MG/ML 2 ML VIAL ONE (13:35)
[2018-09-14] MEDS ORDERED: ROCURONIUM BROMIDE 10 MG/ML 5 ML VIAL ONE (13:35)
[2018-09-14] MEDS ORDERED: ePHEDrine sulfate 50 MG/ML AMP ONE (13:35)
[2018-09-14] MEDS ORDERED: PROPOFOL IV EMULSION 10 MG/ML 20 ML VIAL IV ONE (13:35)
[2018-09-14] MEDS ORDERED: NEOSTIGMINE METHYLSULFATE 5 MG/5 ML SYR ONE (15:27)
[2018-09-14] MEDS ORDERED: GLYCOPYRROLATE 0.2 MG/ML VIAL ONE (15:27)
--- NOTE | 2018-09-14 15:40 | Operative Report ---
Post Operative Report Pre & Post Diagnosis Operation Date: 09/14/18 13:20 Pre-Op Diagnosis: Primary Osteoarthritis, Left Shoulder Post-Op Diagnosis: Primary Osteoarthritis, Left Shoulder post biceps tendon tear Procedure Operation Date: 09/14/18 13:20 Actual Procedures p Left Total Shoulder Arthroplasty--press-fit humeral stem with hybrid ingrowth plus cemented glenoid (Left), biceps tenodesis- Carlo Hillman MD Surgeon Carlo Hillman MD Concrete Foreman Sunny Ramirez PA-C Estimated Blood Loss 20 Findings Consistent with Post-Op Diagnosis Specimens Bone and tissue Drains None Anesthesia Type General Regional Complications none Disposition Accompanied Patient To Recovery: No Disposition: Recovery Room Indications The patient is a 52-year-old male long-standing pain in the left shoulder. He is failed conservative measures including injection, anti-inflammatories, rehab. He is [id number] in the glenohumeral joint. He wishes to proceed with a left total shoulder arthroplasty Description of Procedure Risks, benefits and alternatives to surgery including, but not limited to, infection DVT, pain, stiffness, need for revision surgery, failure to relieve all symptoms, damage to blood vessels, damage to nerves, risk of anesthesia were discussed with the patient and they wished to proceed. The patient was identified. Laterality was confirmed and marked. The patient received a preoperative antibiotic as well as an interscalene block. They were transferred to the operating room and placed in the supine position and induced into general endotracheal anesthesia per the anesthesia staff. The patient was then safely transferred to a slight beachchair position. The patient was secured in the Tenet positioner. All pressure points were well padded. The shoulder was prepped and draped in the usual sterile manner with ChloraPrep. I made a longitudinal incision just lateral to the coracoid, sharply incising th rough the skin and utilizing Bovie electrocautery to achieve hemostasis. I identified the cephalic vein and mobilized it laterally with the deltoid. I mobilize the pectoralis and mobilize this medially releasing a small portion of the upper border of the pec tendon to improve visualization. I then identified and mobilized the conjoined tendon. I identified the long head of the biceps tendon. The long head of the biceps tendon had significant tendinosis and tearing proximally. I performed an in situ biceps tenodesis with interrupted #2 FiberWire suture. I then released the subscapularis. I tagged this with interrupted 0 Ethibond suture for later repair. I pinned into place my humeral head version cutting guide and made my humeral head resection. Inferior osteophytes were removed with a rongeur. I then sequentially reamed and sequentially broached. I then placed the trial humeral stem into the shoulder. I placed retractors around the glenoid and then excised the residual biceps tendon stump and glenoid labrum. I elevated the soft tissues and the inferior aspect of the glenoid to improve exposure and released tissues circumferentially. I then positioned and drilled for the central post. I then drilled for the 3 peripheral pegs. I placed a trial glenoid into position and confirmed the size of the implant. I then placed epinephrine-soaked sponges into the peg holes. The central caged post was bone grafted with bone taken from the humeral head. The peripheral peg holes were cemented with Palacos G cement. The definitive polyethylene was then impacted into place. I then removed the trial humeral stem . I then drilled holes in my subscapularis repair. I placed a total of 3 #2 FiberWire sutures through the drill holes and placed them in a looped fashion around the stem. I then placed the definitive humeral stem. I trialed off of the definitive stem. The definitive components used were [employer] Equinox: Preserved short humeral press-fit stem: 8 Glenoid: Large beta cage Replicator plate: 4.5 Humeral head: 50 x 23 mm I thoroughly irrigated the wound. Deep tissues were anesthetized with an orth omix solution. I then locked replicator plate into position with a torque limiting screw. I then impacted the definitive humeral head into position. I then reduced the shoulder. There was good range of motion and good stability after the reduction. I used the #2 FiberWire suture for a medial row repair of the subscapularis. I then performed a lateral row repair with a running #5 FiberWire suture. The rotator interval was closed with interrupted #2 FiberWire suture. The wound was again thoroughly irrigated and a Betadine soak was performed. The deltopectoral interval was closed with interrupted #1 Ethibond suture. The subcutaneous tissue was closed with interrupted 2-0 Vicryl suture. The skin was closed with jesús. A sterile dressing was applied. A sling was placed. All needle and sponge counts were correct at the end of the procedure. The patient was transferred to the PACU in stable condition without apparent complication. The PA-C was necessary for assistance with procedure for assistance in positioning, prepping, draping, retraction and closure. I attest to the content of the Intraoperative Record and any orders documented therein. Any exceptions are noted below.
[2018-09-14] MEDS ORDERED: SODIUM CHLORIDE 0.9% 1000ML 1,000 ML IV SCH (17:23)
[2018-09-14] MEDS ORDERED: MAGNESIUM HYDROXIDE SUSP 30 ML UDC PO PRN (17:23)
[2018-09-14] MEDS ORDERED: TAMSULOSIN HCL 0.4 MG CAP PO PRN (17:23)
[2018-09-14] MEDS ORDERED: HYDROmorphone INJ 0.5 MG/0.5 ML SYR IV PRN (17:23)
[2018-09-14] MEDS ORDERED: BISACODYL 10 MG SUPP PR PRN (17:23)
[2018-09-14] MEDS ORDERED: NALOXONE HCL 0.4 MG/1 ML VIAL/CARP IV PRN (17:23)
[2018-09-14] MEDS ORDERED: METOCLOPRAMIDE HCL INJ 5 MG/ML 2 ML VIAL IV PRN (17:23)
[2018-09-14] MEDS ORDERED: ONDANSETRON INJ 2 MG/ML 2 ML VIAL IV PRN (17:23)
--- NOTE | 2018-09-14 17:29 | Anesthesiology Progress Note ---
Date of Service September 14, 2018 Anesthesia Post Procedure Vital Signs Vital Signs: Temp Pulse Resp BP Pulse Ox 09/14/18 17:05 54 L 20 116/83 95 09/14/18 16:55 63 17 128/96 96 09/14/18 16:45 60 16 120/87 95 09/14/18 16:35 67 15 126/87 94 09/14/18 16:25 57 L 15 125/83 97 09/14/18 16:15 36.6 C 75 16 163/97 H 96 09/14/18 11:26 36.6 C 54 L 18 149/95 H 97 Pain Intensity Left Shoulder: Pain Intensity: 0 Transfer of Care Handoff Completed per policy Notes Mental Status: alert / awake / arousable and participated in evaluation Patient Amnestic to Procedure: Yes Nausea / Vomiting: adequately controlled Pain: adequately controlled Airway Patency, RR, SpO2: stable & adequate BP & HR: stable & adequate Hydration State: stable & adequate Anesthetic Complications: no major complications apparent
--- NOTE | 2018-09-14 20:22 | XRay Report ---
LEFT SHOULDER 3 VIEWS CLINICAL HISTORY: Postoperative examination. FINDINGS: 3 portable views of the left shoulder are obtained. A left shoulder arthroplasty is in near -anatomic alignment. Cortical irregularity is noted along the inferior aspect of the glenoid with a s mall distracted osseous density. No additional findings are concerning for acute fracture. Productive degenerative change is noted at the acromioclavicular joint. There are expected postoperative change s overlying the left shoulder including skin clips, subcutaneous gas, and soft tissue swelling. The v isualized left lung parenchyma appears clear noting basilar atelectasis. IMPRESSION: 1. There are expected postoperative findings status post left shoulder arthroplasty. 2. There is cortical irregularity with a small distracted osseous density identified along the inferi or aspect of the glenoid. This could represent bony overgrowth, a small joint body, or a small avulsi on fracture. Clinical correlation will be required. Electronically signed by: Alex Beltrán M.D. 09/14/2018 8:21 PM
[2018-09-14] MEDS: ACETAMINOPHEN 500 MG TAB PO SCH (20:34)
[2018-09-14] MEDS: DOCUSATE SODIUM 100 MG CAP PO SCH (20:35)
[2018-09-14] MEDS: CEFAZOLIN 2000MG 2,000 MG/15 ML SYR IV SCH (20:35)
[2018-09-14] MEDS ORDERED: SENNA 8.6 MG TAB PO SCH (21:00)
[2018-09-14] MEDS: OXYCODONE HCL IR 5 MG TAB (IMMEDIATE RELEASE) PO PRN (23:30)
[2018-09-15] MEDS: ACETAMINOPHEN 500 MG TAB PO SCH (06:08)
[2018-09-15] MEDS: CEFAZOLIN 2000MG 2,000 MG/15 ML SYR IV SCH (06:08)
[2018-09-15 06:28] LABS: Basophils # (auto) 0.01 K/uL (0-0.2); Basophils % (auto) 0.1 %; Hematocrit (blood only) 40.4 % (42-52); Hemoglobin 13.8 g/dL (14.0-18.0); Immature Granulocytes # (auto) 0.03 K/uL (0.00-0.02); Immature Granulocytes % (auto) 0.2 %; Lymphocytes % (auto) 7.7 %; Mean Corpuscular Hgb Conc 34.2 g/dL (32-36); Mean Corpuscular Volume 97.1 fL (80-100); Mean Platelet Volume 9.4 fL (7.4-10.4); Monocytes # (auto) 1.21 K/uL (0.11-0.59); Monocytes % (auto) 7.2 %; Neutrophils # (auto) 14.26 K/uL (1.4-6.5); Neutrophils % (auto) 84.8 %; Platelet Count 210 K/uL (130-400); RDW Coefficient of Variation 13.5 % (11.5-14.5); RDW Standard Deviation 47.8 fL (36.4-46.3); Red Blood Count 4.16 M/uL (4.7-6.1); White Blood Count 16.81 K/uL (4.8-10.8)
[2018-09-15 07:06] LABS: BUN Creatinine Ratio 12.3 (10-20); Calcium 8.5 mg/dl (8.5-10.1); Creatinine Clr Calc Pharmacy 85.1 ml/min; Est GFR (African American) 79.3; Est GFR (Non-African American) 68.4
--- NOTE | 2018-09-15 07:19 | Orthopedic Progress Note ---
Date of Service September 15, 2018 Assessment & Plan (1) Primary osteoarthritis, left shoulder: POD#1 Left TSA -Pain management -PT/OT-TSA protocol -DVT prophylaxis-SCDs -D/C planning-home with OPPT later today after PT. Subjective Patient resting in bedside chair, pain well controlled. Not really having any pain in shoulder. No chest pain, sob, alvarado, headache, dizziness. Review of Systems 2 Review of Systems: All systems reviewed & are unremarkable except as noted in HPI & below Physical Exam Physical Exam: Dressing c/d/i, sling in place. Fingers mobile. Sensation intact, n/v status intact. 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 Results & Data Vital Signs (Past 12 Hours) Vital Signs Temp Pulse Resp BP Pulse Ox 09/15/18 02:43 36.5 C 60 16 123/77 94 09/14/18 23:01 36.6 C 77 16 117/73 96 09/14/18 20:38 36.5 C 73 17 121/80 96 09/14/18 19:27 36.5 C 65 18 126/86 94 Laboratory Results Lab Results 09/07/18 09/07/18 09/07/18 Range/Units 09:55 09:55 09:55 WBC 7.56 (4.8-10.8) K/uL RBC 4.55 L (4.7-6.1) M/uL Hgb 15.2 (14.0-18.0) g/dL Hct 44.3 (42-52) % MCV 97.4 (80-100) fL MCH 33.4 (25-34) pg MCHC 34.3 (32-36) g/dL RDW Std Deviation 47.4 H (36.4-46.3) fL RDW Coeff of Gerry 13.3 (11.5-14.5) % Plt Count 204 (130-400) K/uL MPV 10.5 H (7.4-10.4) fL Immature Gran % (Auto) 0.1 % Neut % (Auto) 65.9 % Lymph % (Auto) 22.9 % [place] % (Auto) 9.1 % Eos % (Auto) 1.7 % Baso % (Auto) 0.3 % Immature Gran # (Auto) 0.01 (0.00-0.02) K/uL Neut # (Auto) 4.98 (1.4-6.5) K/uL Lymph # (Auto) 1.73 (1.2-3.4) K/uL [place] # (Auto) 0.69 H (0.11-0.59) K/uL Eos # (Auto) 0.13 (0-0.5) K/uL Baso # (Auto) 0.02 (0-0.2) K/uL PT 10.6 (9.0-12.0) Seconds INR 1.0 (0.9-1.1) APTT 27.6 (21.0-31.0) Seconds PTT Ratio 1.0 Sodium 137 (136-145) mmol/L Potassium 4.3 (3.5-5.1) mmol/L Chloride 106 (98-107) mmol/L Carbon Dioxide 26 (21-32) mmol/L Anion Gap 5.0 (3-11) BUN 23 H (7-18) mg/dl Creatinine 0.87 (0.6-1.4) mg/dl Est Cr Clr Drug Dosing 118.2 ml/min Est GFR ( Amer) 115.0 Est GFR (Non-Af Amer) 99.2 BUN/Creatinine Ratio 26.6 H (10-20) Glucose 92 (70-99) mg/dl Estimat Average Glucose mg/dl Hemoglobin A1c (4.5-5.6) % Calcium 9.0 (8.5-10.1) mg/dl Albumin 3.9 (3.4-5.0) gm/dl Urine Color Urine Appearance (Clear) Urine pH (4.5-7.5) Ur Specific [place] (1.000-1.030) Urine Protein (Negative) Urine Glucose (UA) (Negative) Urine Ketones (Negative) Urine Blood (Negative) Urine Nitrite (Negative) Urine Bilirubin (Negative) Urine Urobilinogen (Negative) Ur Leukocyte Esterase (Negative) Blood Type Antibody Screen 09/07/18 09/07/18 09/07/18 Range/Units 09:55 09:55 Unknown WBC (4.8-10.8) K/uL RBC (4.7-6.1) M/uL Hgb (14.0-18.0) g/dL Hct (42-52) % MCV (80-100) fL MCH (25-34) pg MCHC (32-36) g/dL RDW Std Deviation (36.4-46.3) fL RDW Coeff of Gerry (11.5-14.5) % Plt Count (130-400) K/uL MPV (7.4-10.4) fL Immature Gran % (Auto) % Neut % (Auto) % Lymph % (Auto) % [place] % (Auto) % Eos % (Auto) % Baso % (Auto) % Immature Gran # (Auto) (0.00-0.02) K/uL Neut # (Auto) (1.4-6.5) K/uL Lymph # (Auto) (1.2-3.4) K/uL [place] # (Auto) (0.11-0.59) K/uL Eos # (Auto) (0-0.5) K/uL Baso # (Auto) (0-0.2) K/uL PT (9.0-12.0) Seconds INR (0.9-1.1) APTT (21.0-31.0) Seconds PTT Ratio Sodium (136-145) mmol/L Potassium (3.5-5.1) mmol/L Chloride (98-107) mmol/L Carbon Dioxide (21-32) mmol/L Anion Gap (3-11) BUN (7-18) mg/dl Creatinine (0.6-1.4) mg/dl Est Cr Clr Drug Dosing ml/min Est GFR ( Amer) Est GFR (Non-Af Amer) BUN/Creatinine Ratio (10-20) Glucose (70-99) mg/dl Estimat Average Glucose 117 mg/dl Hemoglobin A1c 5.7 H (4.5-5.6) % Calcium (8.5-10.1) mg/dl Albumin (3.4-5.0) gm/dl Urine Color Yellow Urine Appearance Clear (Clear) Urine pH 5.5 (4.5-7.5) Ur Specific [place] 1.022 (1.000-1.030) Urine Protein Negative (Negative) Urine Glucose (UA) Negative (Negative) Urine Ketones Negative (Negative) Urine Blood Negative (Negative) Urine Nitrite Negative (Negative) Urine Bilirubin Negative (Negative) Urine Urobilinogen Negative (Negative) Ur Leukocyte Esterase Negative (Negative) Blood Type O Negative Antibody Screen NEGATIVE 09/15/18 09/15/18 Range/Units 06:18 06:18 WBC 16.81 H (4.8-10.8) K/uL RBC 4.16 L (4.7-6.1) M/uL Hgb 13.8 L (14.0-18.0) g/dL Hct 40.4 L (42-52) % MCV 97.1 (80-100) fL MCH 33.2 (25-34) pg MCHC 34.2 (32-36) g/dL RDW Std Deviation 47.8 H (36.4-46.3) fL RDW Coeff of Gerry 13.5 (11.5-14.5) % Plt Count 210 (130-400) K/uL MPV 9.4 (7.4-10.4) fL Immature Gran % (Auto) 0.2 % Neut % (Auto) 84.8 % Lymph % (Auto) 7.7 % [place] % (Auto) 7.2 % Eos % (Auto) 0.0 % Baso % (Auto) 0.1 % Immature Gran # (Auto) 0.03 H (0.00-0.02) K/uL Neut # (Auto) 14.26 H (1.4-6.5) K/uL Lymph # (Auto) 1.30 (1.2-3.4) K/uL [place] # (Auto) 1.21 H (0.11-0.59) K/uL Eos # (Auto) 0.00 (0-0.5) K/uL Baso # (Auto) 0.01 (0-0.2) K/uL PT (9.0-12.0) Seconds INR (0.9-1.1) APTT (21.0-31.0) Seconds PTT Ratio Sodium 139 (136-145) mmol/L Potassium 4.0 (3.5-5.1) mmol/L Chloride 103 (98-107) mmol/L Carbon Dioxide 27 (21-32) mmol/L Anion Gap 9.0 (3-11) BUN 15 (7-18) mg/dl Creatinine 1.21 (0.6-1.4) mg/dl Est Cr Clr Drug Dosing 85.1 ml/min Est GFR ( Amer) 79.3 Est GFR (Non-Af Amer) 68.4 BUN/Creatinine Ratio 12.3 (10-20) Glucose 109 H (70-99) mg/dl Estimat Average Glucose mg/dl Hemoglobin A1c (4.5-5.6) % Calcium 8.5 (8.5-10.1) mg/dl Albumin (3.4-5.0) gm/dl Urine Color Urine Appearance (Clear) Urine pH (4.5-7.5) Ur Specific [place] (1.000-1.030) Urine Protein (Negative) Urine Glucose (UA) (Negative) Urine Ketones (Negative) Urine Blood (Negative) Urine Nitrite (Negative) Urine Bilirubin (Negative) Urine Urobilinogen (Negative) Ur Leukocyte Esterase (Negative) Blood Type Antibody Screen
--- NOTE | 2018-09-15 07:54 | Anesthesiology Progress Note ---
Date of Service September 15, 2018 Anesthesia Post Procedure Vital Signs Vital Signs: Temp Pulse Pulse Pulse Resp BP Pulse Ox 09/15/18 07:43 36.4 C L 60 18 116/78 97 09/15/18 02:43 36.5 C 60 16 123/77 94 09/14/18 23:01 36.6 C 77 16 117/73 96 09/14/18 20:38 36.5 C 73 17 121/80 96 09/14/18 19:27 36.5 C 65 18 126/86 94 09/14/18 18:24 36.9 C 95 H 18 147/81 H 97 09/14/18 17:51 36.4 C L 61 17 143/85 H 99 09/14/18 17:20 36.5 C 58 L 16 130/87 96 09/14/18 17:05 54 L 20 116/83 95 09/14/18 16:55 63 17 128/96 96 09/14/18 16:45 60 16 120/87 95 09/14/18 16:35 67 15 126/87 94 09/14/18 16:25 57 L 15 125/83 97 09/14/18 16:15 36.6 C 75 16 163/97 H 96 09/14/18 11:26 36.6 C 54 L 18 149/95 H 97 Pain Intensity Left Shoulder: Pain Intensity: 0 Notes Mental Status: alert / awake / arousable and participated in evaluation Patient Amnestic to Procedure: Yes Nausea / Vomiting: adequately controlled Pain: adequately controlled Airway Patency, RR, SpO2: stable & adequate BP & HR: stable & adequate Hydration State: stable & adequate Anesthetic Complications: no major complications apparent and Pt Satisfied with anesthetic care
[2018-09-15] MEDS: OXYCODONE HCL IR 5 MG TAB (IMMEDIATE RELEASE) PO PRN (08:47)
[2018-09-15] MEDS: DOCUSATE SODIUM 100 MG CAP PO SCH (08:47)
[2018-09-15] MEDS ORDERED: MULTIVITAMIN TAB PO SCH (09:00)
--- NOTE | 2018-09-16 11:27 | Discharge Summary ---
Date of Service September 16, 2018 Admission HPI Per Admitting Provider Patient is 52 year old male with no significant past medical history has long standing history of bilateral shoulder pain. He has failed conservative measures including cortisone injections and anti-inflammatory medications. He has significant osteoarthritis of his shoulders. Pain is worse in left than right. He is having difficulty doing daily acitivity. He would like to proceed with surgical intervention. Patient denies headaches, sweats, fevers, chills, double vision, blurred vision, cough, sore throat, dysphagia, chest pain, sob, wheezing, n/v/d/c, numbness, tingling, fatigue, urinary symptoms, mood disorder s. ROS positive for bilateral pain and stiffness. Admission Exam Per Admitting Provider Constitutional: well developed and well nourished; no acute distress Eyes: PERRL, conjunctivae normal, anicteric sclerae ENMT: external ear and nose normal, oropharynx normal Neck: trachea midline, no thyromegaly Respiratory: normal respiratory effort, lungs clear to auscultation Cardiovascular: RRR, no murmur, no edema Musculoskeletal: Left shoulder-Decreased active and passive ROM secondary to pain, strength is mildly decreased, RTC strength well preserved. Crepitus noted with ROM. Positive impingement signs. Skin: no rashes, warm and dry Neurologic: patellar DTR's 2+ bilat, sensation intact Psychiatric: A+Ox3, euthymic affect Principal Diagnosis Left shoulder osteoarthritis Discharge Exam Constitutional well developed and well nourished; no acute distress Eyes PERRL, conjunctivae normal, anicteric sclerae ENMT external ear and nose normal, oropharynx normal Neck trachea midline, no thyromegaly Respiratory normal respiratory effort, lungs clear to auscultation Cardiovascular RRR, no murmur, no edema Skin no rashes, warm and dry Neurologic patellar DTR's 2+ bilat, sensation intact Psychiatric A+Ox3, euthymic affect Discharge Data Allergies Allergy/AdvReac Type Severity Reaction Status Date / Time aspirin AdvReac Unknown ADVISED TO Verified 09/14/18 11:20 AVOID HX STOMACH ULCER Consultations 09/14/18 17:23 Consult Case Management - Discharge Planning Routine Procedures Performed Operation Date: 09/14/18 13:20 Actual Procedures p Left Total Shoulder Arthroplasty--Cemented(Left) - Carlo Hillman MD Ordered Studies 09/14/18 05:00 US - OR guided needle placemen Routine Hospital Course (1) Primary osteoarthritis, left shoulder: Patient presented for same day admission following Left total shoulder arthroplasty on 09/14/18. He tolerated procedure well. The Patient had an uneventful hospital course. Post-operatively, his activity was progressed and well tolerated. They participated in PT without complication. Labs remained stable- lowest hemoglobin recorded: 13.8. Pain controlled on oral medications. Please refer to daily progress notes and PT notes for complete details. After exam on 09/15/18, patient was felt to be stable for discharge home with outpatient PT. Patient will f/u in the office in about 2 weeks for further evaluation including x-rays and incision check, sooner if having any issues or concerns. Lab Results 09/07/18 09/07/18 09/07/18 Range/Units 09:55 09:55 09:55 WBC 7.56 (4.8-10.8) K/uL RBC 4.55 L (4.7-6.1) M/uL Hgb 15.2 (14.0-18.0) g/dL Hct 44.3 (42-52) % MCV 97.4 (80-100) fL MCH 33.4 (25-34) pg MCHC 34.3 (32-36) g/dL RDW Std Deviation 47.4 H (36.4-46.3) fL RDW Coeff of Gerry 13.3 (11.5-14.5) % Plt Count 204 (130-400) K/uL MPV 10.5 H (7.4-10.4) fL Immature Gran % (Auto) 0.1 % Neut % (Auto) 65.9 % Lymph % (Auto) 22.9 % Castro % (Auto) 9.1 % Eos % (Auto) 1.7 % Baso % (Auto) 0.3 % Immature Gran # (Auto) 0.01 (0.00-0.02) K/uL Neut # (Auto) 4.98 (1.4-6.5) K/uL Lymph # (Auto) 1.73 (1.2-3.4) K/uL Castro # (Auto) 0.69 H (0.11-0.59) K/uL Eos # (Auto) 0.13 (0-0.5) K/uL Baso # (Auto) 0.02 (0-0.2) K/uL PT 10.6 (9.0-12.0) Seconds INR 1.0 (0.9-1.1) APTT 27.6 (21.0-31.0) Seconds PTT Ratio 1.0 Sodium 137 (136-145) mmol/L Potassium 4.3 (3.5-5.1) mmol/L Chloride 106 (98-107) mmol/L Carbon Dioxide 26 (21-32) mmol/L Anion Gap 5.0 (3-11) BUN 23 H (7-18) mg/dl Creatinine 0.87 (0.6-1.4) mg/dl Est Cr Clr Drug Dosing 118.2 ml/min Est GFR ( Amer) 115.0 Est GFR (Non-Af Amer) 99.2 BUN/Creatinine Ratio 26.6 H (10-20) Glucose 92 (70-99) mg/dl Estimat Average Glucose mg/dl Hemoglobin A1c (4.5-5.6) % Calcium 9.0 (8.5-10.1) mg/dl Albumin 3.9 (3.4-5.0) gm/dl Urine Color Urine Appearance (Clear) Urine pH (4.5-7.5) Ur Specific [place] (1.000-1.030) Urine Protein (Negative) Urine Glucose (UA) (Negative) Urine Ketones (Negative) Urine Blood (Negative) Urine Nitrite (Negative) Urine Bilirubin (Negative) Urine Urobilinogen (Negative) Ur Leukocyte Esterase (Negative) Blood Type Antibody Screen 09/07/18 09/07/18 09/07/18 Range/Units 09:55 09:55 Unknown WBC (4.8-10.8) K/uL RBC (4.7-6.1) M/uL Hgb (14.0-18.0) g/dL Hct (42-52) % MCV (80-100) fL MCH (25-34) pg MCHC (32-36) g/dL RDW Std Deviation (36.4-46.3) fL RDW Coeff of Gerry (11.5-14.5) % Plt Count (130-400) K/uL MPV (7.4-10.4) fL Immature Gran % (Auto) % Neut % (Auto) % Lymph % (Auto) % Castro % (Auto) % Eos % (Auto) % Baso % (Auto) % Immature Gran # (Auto) (0.00-0.02) K/uL Neut # (Auto) (1.4-6.5) K/uL Lymph # (Auto) (1.2-3.4) K/uL Castro # (Auto) (0.11-0.59) K/uL Eos # (Auto) (0-0.5) K/uL Baso # (Auto) (0-0.2) K/uL PT (9.0-12.0) Seconds INR (0.9-1.1) APTT (21.0-31.0) Seconds PTT Ratio Sodium (136-145) mmol/L Potassium (3.5-5.1) mmol/L Chloride (98-107) mmol/L Carbon Dioxide (21-32) mmol/L Anion Gap (3-11) BUN (7-18) mg/dl Creatinine (0.6-1.4) mg/dl Est Cr Clr Drug Dosing ml/min Est GFR ( Amer) Est GFR (Non-Af Amer) BUN/Creatinine Ratio (10-20) Glucose (70-99) mg/dl Estimat Average Glucose 117 mg/dl Hemoglobin A1c 5.7 H (4.5-5.6) % Calcium (8.5-10.1) mg/dl Albumin (3.4-5.0) gm/dl Urine Color Yellow Urine Appearance Clear (Clear) Urine pH 5.5 (4.5-7.5) Ur Specific [place] 1.022 (1.000-1.030) Urine Protein Negative (Negative) Urine Glucose (UA) Negative (Negative) Urine Ketones Negative (Negative) Urine Blood Negative (Negative) Urine Nitrite Negative (Negative) Urine Bilirubin Negative (Negative) Urine Urobilinogen Negative (Negative) Ur Leukocyte Esterase Negative (Negative) Blood Type O Negative Antibody Screen NEGATIVE 09/15/18 09/15/18 Range/Units 06:18 06:18 WBC 16.81 H (4.8-10.8) K/uL RBC 4.16 L (4.7-6.1) M/uL Hgb 13.8 L (14.0-18.0) g/dL Hct 40.4 L (42-52) % MCV 97.1 (80-100) fL MCH 33.2 (25-34) pg MCHC 34.2 (32-36) g/dL RDW Std Deviation 47.8 H (36.4-46.3) fL RDW Coeff of Gerry 13.5 (11.5-14.5) % Plt Count 210 (130-400) K/uL MPV 9.4 (7.4-10.4) fL Immature Gran % (Auto) 0.2 % Neut % (Auto) 84.8 % Lymph % (Auto) 7.7 % Castro % (Auto) 7.2 % Eos % (Auto) 0.0 % Baso % (Auto) 0.1 % Immature Gran # (Auto) 0.03 H (0.00-0.02) K/uL Neut # (Auto) 14.26 H (1.4-6.5) K/uL Lymph # (Auto) 1.30 (1.2-3.4) K/uL Castro # (Auto) 1.21 H (0.11-0.59) K/uL Eos # (Auto) 0.00 (0-0.5) K/uL Baso # (Auto) 0.01 (0-0.2) K/uL PT (9.0-12.0) Seconds INR (0.9-1.1) APTT (21.0-31.0) Seconds PTT Ratio Sodium 139 (136-145) mmol/L Potassium 4.0 (3.5-5.1) mmol/L Chloride 103 (98-107) mmol/L Carbon Dioxide 27 (21-32) mmol/L Anion Gap 9.0 (3-11) BUN 15 (7-18) mg/dl Creatinine 1.21 (0.6-1.4) mg/dl Est Cr Clr Drug Dosing 85.1 ml/min Est GFR ( Amer) 79.3 Est GFR (Non-Af Amer) 68.4 BUN/Creatinine Ratio 12.3 (10-20) Glucose 109 H (70-99) mg/dl Estimat Average Glucose mg/dl Hemoglobin A1c (4.5-5.6) % Calcium 8.5 (8.5-10.1) mg/dl Albumin (3.4-5.0) gm/dl Urine Color Urine Appearance (Clear) Urine pH (4.5-7.5) Ur Specific [place] (1.000-1.030) Urine Protein (Negative) Urine Glucose (UA) (Negative) Urine Ketones (Negative) Urine Blood (Negative) Urine Nitrite (Negative) Urine Bilirubin (Negative) Urine Urobilinogen (Negative) Ur Leukocyte Esterase (Negative) Blood Type Antibody Screen Total Time Total Time Spent Total Time Spent (In Minutes): 20 Discharge Plan Discharge Items Patient Disposition: Home - Self-Care Reason For Visit: Primary Osteoarthritis, Left Shoulder Discharge Diagnosis: Left shoulder osteoarthritis Discharge Goals: Decrease discomfort and Improve function Activity: Per 'Additional Instructions' section Non-emergency contact: Surgeon Call non-emergency contact if: you have any medication questions, your pain is not controlled, your pain is concerning for you, your temperature is above 101, your wound has increased redness and your wound has increased drainage Follow-up/Referrals: Eliezer Banks Jr, MD [Primary Care Provider] - Diet: Regular Addtl Provider Instructions: ACTIVITY RECOMMENDATIONS: SELF CARE INSTRUCTIONS AFTER TOTAL SHOULDER ARTHROPLASTY A. You may do daily exercises as taught in physical therapy while in hospital. No lifting with the operative arm. Please schedule your outpatient physical therapy appointment to begin within 2-3 days after leaving the hospital. Specific restrictions will be written on your physical therapy prescription that is provided to you. B. You are to wear your sling/immobilizer at all times EXCEPT when performing your daily exercises, participating in physical therapy and for hygiene purpo ses. C. You may perform dry, daily dressing changes. Please keep your incision covered. You may shower 48 hours after surgery. Do not apply soap or any ointment/lotions directly over incision. Do not soak incision in bath tub/swimming pool. D. You may use ice as needed to operative shoulder. SPECIAL CARE INSTRUCTIONS: VERY IMPORTANT TO READ AND REVIEW A. There are a few signs you need to watch for after you are home. Call [facility] at [phone] if you experience any of the followin. Increased severe shoulder pain. Some pain is expected especially when you exercise. 2. Increased swelling in you shoulder or arm; pain or swelling in either upper extremity. 3. Any fluid drainage from the incision. 4. Shortness of breath or chest pain. B. Please call [facility] at [phone] if you have any questions or concerns about your operation or recovery. C. Call your physician if: 1. Temperature is greater than 101 degrees (F). 2. Pain is not relieved by prescribed pain medications. 3. Increase drainage or redness from incision. 4. Unanswered questions or concerns. FOLLOW UP VISIT: Please call [facility] at [phone] to schedule a follow up appointment with Dr. Hillman or his PA in 12-14 days from your surgery date. Prescriptions: New acetaminophen [Tylenol Extra Strength] 500 mg Tablet 1,000 mg PO Q8 Qty: 60 RF: 0 oxycodone 5 mg Tablet 5 - 10 mg PO .Q4H-6H MDD 6 PRN (Reason: pain) Qty: 30 RF: 0 Discontinued naproxen sodium [Aleve] 220 mg Capsule 220 mg PO BID PRN (Reason: Pain) RF: 0 meloxicam 15 mg Tablet 15 mg PO DAILY PRN (Reason: Pain) RF: 0 Cold and Sinus Pain Relief 30-200 mg Tablet 2 tab PO BID PRN (Reason: Nasal Congestion) RF: 0 Stand-Alone Forms: [employer], Opioid Pain Management [facility]/Other Patient Handouts: Post Op Pain Manage Home Meds Discharge Orders: Discharge Order (Routine); Ordered 09/15/18 Ordered By: Sunny Ramirez Admission Data Admit Date/Time: 09/14/18 17:23 Attending Provider: Carlo Hillman Admit Provider: Carlo Hillman Primary Care Provider: Eliezer Banks Jr Service: Surgical Services Other Interventions: Discharge Summary Assessment (RN) Last Done: 09/15/18 09:49 DC Date/Time DO NOT enter until pt leaves facility: 09/15/18 12:19
== END 2018-09-15 12:19 | disposition home or self-care (01) | DRG 483 ==
LOC: ASU 10:51 → 3E 17:23

== ENCOUNTER 2019-02-09 12:37 | Inpatient (IN) ==
[2019-02-09] MEDS ORDERED: GABAPENTIN 300 MG CAP ONE (16:31)
[2019-02-09] MEDS ORDERED: CeleBREX 200 MG CAP ONE (16:31)
[2019-02-09] MEDS ORDERED: FAMOTIDINE 20 MG TAB ONE (16:31)
--- NOTE | 2019-02-09 16:31 | History & Physical Bridge Note ---
Date of Service February 09, 2019 History & Physical Bridge Note I have examined the patient, reviewed the History & Physical and in the interval since the performance of the History & Physical I have noted the following changes of clinical significance: no changes noted
[2019-02-09] MEDS ORDERED: METOCLOPRAMIDE HCL 10 MG TABLET ONE (16:32)
[2019-02-09] MEDS ORDERED: ACETAMINOPHEN 500 MG TAB ONE (16:32)
[2019-02-09] MEDS ORDERED: CEFAZOLIN 2,000 MG/15 ML IV PUSH IV ONE (16:32)
[2019-02-09] MEDS ORDERED: OXYCODONE HCL 10 MG TABCR (OXYCONTIN) ONE (16:33)
[2019-02-09] MEDS ORDERED: VANCOMYCIN HCL 1000MG/20ML VIAL ONE (17:45)
[2019-02-09] MEDS ORDERED: THROMBIN FOR SOLN 20000 UNIT KIT ONE (17:45)
[2019-02-09] MEDS ORDERED: MIDAZOLAM HCL 1 MG/ML 2ML VIAL ONE (17:46)
[2019-02-09] MEDS ORDERED: fentaNYL citrate 100 MCG/2 ML VIAL ONE ×2 (17:46→18:03)
[2019-02-09] MEDS ORDERED: BACITRACIN INJ 50,000 UNIT VIAL ONE (17:46)
[2019-02-09] MEDS ORDERED: DEXAMETHASONE SOD INJ 4 MG/ML VIAL ONE ×2 (17:52→18:03)
[2019-02-09] MEDS ORDERED: BUPIVACAINE/EPINEPHRINE 0.25% 1:200,000 30 ML VIAL ONE (17:52)
[2019-02-09] MEDS ORDERED: LIDOCAINE HCL 2% 2 ML VIAL/AMP(20MG/ML) INFIL ONE (18:03)
[2019-02-09] MEDS ORDERED: GLYCOPYRROLATE 0.2 MG/ML VIAL ONE (18:03)
[2019-02-09] MEDS ORDERED: PROPOFOL IV EMULSION 10 MG/ML 20 ML VIAL IV ONE (18:03)
[2019-02-09] MEDS ORDERED: NEOSTIGMINE METHYLSULFATE 5 MG/5 ML SYR ONE (18:03)
[2019-02-09] MEDS ORDERED: ONDANSETRON INJ 2 MG/ML 2 ML VIAL ONE (18:03)
--- NOTE | 2019-02-09 18:16 | Anesthesiology Consultation ---
Date of Service February 09, 2019 Chews tobacco Assessment & Plan (1) Encounter for pre-operative examination: Chart Review Chart Review: Acceptable Risk for Surgery and Patient NOT seen in Pre Admission Testing Consults Requested none ASA ASA2 Proposed Anesthesia Anesthesia Type: General Regional Regional Laterality: Right Risk / Benefits Reviewed With: PT / POA / Parent / Guardian, Accepts Plan and Informed Consent Obtained History Surgery Operation Date: 02/09/19 07:00 Proposed Procedures p Right Total Shoulder Arthroplasty - Carlo Hillman MD Height/Weight Height: 6 ft Weight: 93.8 kg Allergies Allergy/AdvReac Type Severity Reaction Status Date / Time aspirin AdvReac Unknown ADVISED TO Verified 02/09/19 13:21 AVOID HX STOMACH ULCER Medications Home Medications Medication Instructions Recorded Confirmed Last Taken naproxen sodium [Aleve] 440 mg PO BID PRN 02/09/19 02/09/19 Unknown NPO Date Last Intake of Fluids: 02/08/19 Time Last Intake of Fluids: 20:00 Date Last Intake of Solids: 02/08/19 Time Last Intake of Solids: 20:00 Past Medical History Medical History History of stomach ulcers Remote hx 10 years ago- gastric ulcer bleed/perforation s/p abdominal surgery Exercise / Class Metabolic Activity II 4-5 Yardwork/Stairs/Walk up hill Past Family History Family History Grandmother (Paternal) Family history of diabetes mellitus Past Surgical History Surgical History History of carpal tunnel release of both wrists History of esophagogastroduodenoscopy (EGD) History of hernia surgery LEFT INGUINAL History of total knee replacement RT/LEFT History of total shoulder replacement LEFT Hx of abdominal surgery 2/2 bleeding gastric ulcer Hx of colonoscopy Hx of foot surgery RIGHT - D/T TRAUMATIC INJURY Past Anesthesia History No Hx of Anesthesia Complications and No Family Hx of Anesthesia Complications History of PONV No Hx of PONV and No Hx of Motion Sickness Social History Smoking Status: Never smoker tobacco type: smokeless tobacco Do You Dip or Chew Tobacco: Yes Hx Alcohol Use: No Alcohol type: beer alcohol intake frequency: holidays/special occasions only Hx Substance Use: No substance use type: does not use Physical Exam Vital Signs Last Vital Signs Temp 36.6 C 02/09/19 13:23 Pulse 61 02/09/19 13:23 Resp 18 02/09/19 13:23 BP 150/99 H 02/09/19 13:23 Pulse Ox 97 02/09/19 13:23 ENMT Mouth: no dentition abnormality Thyromental Distance: > or= 3.5 Finger Breadths Mallampati Class: II Neck normal visual inspection Respiratory normal respiratory effort Auscultation: lungs clear to auscultation bilaterally Cardiovascular Rate/Rhythm: regular rate and regular rhythm Psychiatric Orientation: alert
[2019-02-09] MEDS ORDERED: ATROPINE SULFATE 0.1 MG/ML 10ML SYR IV PRN (18:29)
[2019-02-09] MEDS ORDERED: fentaNYL citrate 100 MCG/2 ML VIAL IV PRN (18:29)
[2019-02-09] MEDS ORDERED: ONDANSETRON INJ 2 MG/ML 2 ML VIAL IV PRN ×2 (18:29→22:33)
[2019-02-09] MEDS ORDERED: ePHEDrine sulfate 50 MG/ML AMP IV PRN (18:29)
[2019-02-09] MEDS ORDERED: PHENYLEPHRINE 100MCG/ML 5ML SYR ONE (18:48)
[2019-02-09] MEDS ORDERED: WATER, STERILE FOR INJ 10 ML VIAL ONE (18:48)
[2019-02-09] MEDS ORDERED: ePHEDrine sulfate 50 MG/ML SYR ONE (18:48)
[2019-02-09] MEDS ORDERED: ROPIVACAINE 0.5% HCL/PF 150 MG, BUPIVACAINE 0.5% MPF 30 ML, EPINEPHrine 30MG/30ML (OR U... INSTIL ONE (19:00)
--- NOTE | 2019-02-09 21:31 | Operative Report ---
Post Operative Report Pre & Post Diagnosis Operation Date: 02/09/19 07:00 Pre-Op Diagnosis: Right Shoulder Osteoarthritis Post-Op Diagnosis: Right Shoulder Osteoarthritis plus tear long head biceps tendon I identified the patient and participated in the time-out.: Yes Procedure Operation Date: 02/09/19 07:00 Actual Procedures p Right Total Shoulder Arthroplasty(Right) plus biceps tenodesis- Carlo Hillman MD Surgeon Carlo Hillman MD Derrick Boat Operator Sunny Ramirez PA-C Estimated Blood Loss 100 Findings Consistent with Post-Op Diagnosis Specimens Bone and tissue Anesthesia Type General/Epidural Complications none Disposition Accompanied Patient To Recovery: No Disposition: Recovery Room Indications Patient is a 53-year-old male longstanding arthritic change in the right shoulder. Is [id number] of the humeral joint. Is failed conservative measures including injection, anti-inflammatories and rehab. He wishes to proceed with a right total shoulder arthroplasty Description of Procedure Risks, benefits and alternatives to surgery including, but not limited to, infection DVT, pain, stiffness, need for revision surgery, failure to relieve all symptoms, damage to blood vessels, damage to nerves, risk of anesthesia were discussed with the patient and they wished to proceed. The patient was identified. Laterality was confirmed and marked. The patient received a preoperative antibiotic as well as an interscalene block. They were transferred to the operating room and placed in the supine position and induced into general endotracheal anesthesia per the anesthesia staff. The patient was then safely transferred to a slight beachchair position. The patient was secured in the Tenet positioner. All pressure points were well padded. The shoulder was prepped and draped in the usual sterile manner with ChloraPrep. I made a longitudinal incision just lateral to the coracoid, sharply incising through the skin and utilizing Bovie electrocautery to achieve hemostasis. I identified the cephalic vein and mobilized it laterally with the deltoid. I mobilize the pectoralis and mobilize this medially releasing a small portion of the upper border of the pec tendon to improve visualization. I then identified and mobilized the conjoined tendon. I identified the long head of the biceps tendon. The long head of the biceps tendon had significant tendinosis and tearing proximally. I performed an in situ biceps tenodesis with interrupted #2 FiberWire suture. I then released the subscapularis. I tagged this with interrupted 0 Ethibond suture for later repair. I pinned into place my humeral head version cutting guide and made my humeral head resection. Inferior osteophytes were removed with a rongeur. I then sequentially reamed and sequentially broached. I then placed the trial humeral stem into the shoulder. I placed retractors around the glenoid and then excised the residual biceps tendon stump and glenoid labrum. I elevated the soft tissues and the inferior aspect of the glenoid to improve exposure and released tissues circumferentially. I then positioned and drilled for the central post. He had fairly significant posterior wear with the centricity consistent with a type B2 glenoid. I reamed down the high side but in order to completely establish normal version of the glenoid I felt I would need to remove too much anterior bone. Therefore elected to use a posterior augmented glenoid component. I then drilled for the 3 peripheral pegs. I placed a trial glenoid into position and confirmed the size of the implant. I then placed epinephrine-soaked sponges into the peg holes. The central caged post was bone grafted with bone taken from the humeral head. The peripheral peg holes were cemented with Palacos G cement. The definitive polyethylene was then impacted into place. I then removed the trial humeral stem . I then drilled holes in my subscapularis repair. I placed a total of 3 #2 FiberWire sutures through the drill holes and placed them in a looped fashion around the stem. I then placed the definitive humeral stem. I trialed off of the definitive stem. He still had some posterior subluxation with the standard size humeral head so I needed to go to the extended size humeral head to improve his posterior stability and prevent subluxation posteriorly. The definitive components used were [employer] Equinox: Preserved short humeral press-fit stem: 8 Glenoid: 8 degree posterior augment cage large right-sided Replicator plate: 4.5 Humeral head: 50 mm x 27 mm I thoroughly irrigated the wound. Deep tissues were anesthetized with an orthomix solution. I then locked replicator plate into position with a torque limiting screw. I then impacted the definitive humeral head into position. I then reduced the shoulder. There was good range of motion and good stability after the reduction. I used the #2 FiberWire suture for a medial row repair of the subscapularis. I then performed a lateral row repair with a running #5 FiberWire suture. The rotator interval was closed with interrupted #2 FiberWire suture. The wound was again thoroughly irrigated and a Betadine soak was performed. A deep drain was placed. The deltopectoral interval was closed with interrupted #1 Ethibond suture. The subcutaneous tissue was closed with interrupted 2-0 Vicryl suture. The skin was closed with jesús. A sterile dressing was applied. A sling was placed. All needle and sponge counts were correct at the end of the procedure. The patient was transferred to the PACU in stable condition without apparent complication. The PA-C was necessary for assistance with procedure for assistance in positioning, prepping, draping, retraction and closure. I attest to the content of the Intraoperative Record and any orders documented therein. Any exceptions are noted below.
--- NOTE | 2019-02-09 22:07 | Anesthesiology Progress Note ---
Date of Service February 09, 2019 Anesthesia Post Procedure Vital Signs Vital Signs: Temp Pulse Pulse Resp BP BP Pulse Ox 02/09/19 22:00 81 16 128/91 95 02/09/19 21:50 83 19 123/74 97 02/09/19 21:42 36.8 C 82 18 139/101 H 97 02/09/19 13:23 36.6 C 61 18 150/99 H 97 Pain Intensity Right Shoulder: Pain Intensity: 0 Transfer of Care Handoff Completed per policy Notes Mental Status: alert / awake / arousable Patient Amnestic to Procedure: Yes Nausea / Vomiting: adequately controlled Pain: adequately controlled Airway Patency, RR, SpO2: stable & adequate BP & HR: stable & adequate Hydration State: stable & adequate Anesthetic Complications: no major complications apparent Notes: block working well in pacu
--- NOTE | 2019-02-09 22:20 | XRay Report ---
XR shoulder RT min 2V routine HISTORY: 53 years-old Male Post shoulder surgery right shoulder total joint arthroplasty COMPARISON: Chest radiograph 09/07/2018 TECHNIQUE: 2 views the right shoulder FINDINGS: Right shoulder total joint arthroplasty demonstrates satisfactory alignment. No acute fracture or ret ained foreign body. Expected postsurgical soft tissue swelling and deep tissue air is noted with over lying skin jesús. Right lung base atelectasis with hypoinflation. IMPRESSION: Satisfactory alignment of the right shoulder total joint arthroplasty. ACT 112: Negative or not required by law. The above report was generated using voice recognition software. It may contain grammatical, syntax o r spelling errors. Electronically signed by: Bruno Davis M.D. 02/09/2019 10:18 PM
[2019-02-09] MEDS ORDERED: METOCLOPRAMIDE HCL INJ 5 MG/ML 2 ML VIAL IV PRN (22:33)
[2019-02-09] MEDS ORDERED: bisacodyL 10 MG SUPP PR PRN (22:33)
[2019-02-09] MEDS ORDERED: HYDROmorphone INJ 0.5 MG/0.5 ML SYR IV PRN (22:33)
[2019-02-09] MEDS ORDERED: NALOXONE HCL 0.4 MG/1 ML VIAL/CARP IV PRN (22:33)
[2019-02-09] MEDS ORDERED: TAMSULOSIN HCL 0.4 MG CAP PO PRN (22:33)
[2019-02-09] MEDS ORDERED: SODIUM CHLORIDE 0.9% 1000ML 1,000 ML IV SCH (22:33)
[2019-02-09] MEDS ORDERED: MAGNESIUM HYDROXIDE SUSP 30 ML UDC PO PRN (22:33)
[2019-02-09] MEDS ORDERED: OXYCODONE HCL IR 5 MG TAB (IMMEDIATE RELEASE) PO PRN (22:33)
[2019-02-10] MEDS: ACETAMINOPHEN 500 MG TAB PO SCH ×2 (00:38→05:41)
[2019-02-10] MEDS: CEFAZOLIN 2000MG 2,000 MG/15 ML SYR IV SCH ×2 (00:38→09:10)
[2019-02-10 05:59] LABS: Hematocrit (blood only) 38.6 % (42-52); Hemoglobin 12.9 g/dL (14.0-18.0); Immature Granulocytes # (auto) 0.02 K/uL (0.00-0.02); Immature Granulocytes % (auto) 0.2 %; Lymphocytes # (auto) 0.72 K/uL (1.2-3.4); Lymphocytes % (auto) 6.8 %; Mean Corpuscular Hemoglobin 31.7 pg (25-34); Mean Corpuscular Hgb Conc 33.4 g/dL (32-36); Mean Corpuscular Volume 94.8 fL (80-100); Mean Platelet Volume 9.8 fL (7.4-10.4); Monocytes # (auto) 0.66 K/uL (0.11-0.59); Monocytes % (auto) 6.2 %; Neutrophils # (auto) 9.22 K/uL (1.4-6.5); Neutrophils % (auto) 86.8 %; Platelet Count 178 K/uL (130-400); RDW Coefficient of Variation 13.5 % (11.5-14.5); RDW Standard Deviation 47.1 fL (36.4-46.3); Red Blood Count 4.07 M/uL (4.7-6.1); White Blood Count 10.62 K/uL (4.8-10.8)
[2019-02-10 06:29] LABS: BUN Creatinine Ratio 13.8 (10-20); Calcium 8.3 mg/dl (8.5-10.1); Creatinine Clr Calc Pharmacy 101.6 ml/min; Est GFR (African American) 99.2; Est GFR (Non-African American) 85.5; Potassium 4.2 mmol/L (3.5-5.1)
--- NOTE | 2019-02-10 08:12 | Orthopedic Progress Note ---
Date of Service February 10, 2019 Assessment & Plan (1) Primary osteoarthritis, right shoulder: POD #1 s/p Right Total Shoulder Arthroplasty(Right) plus biceps tenodesis PT/OT Pain control D/C planning--d/c home today. Subjective Doing well this morning. Feels the block is still working but starting to get sensation back. Pain is controlled. Denies CP, SOB, LH. Would like to go home today. Physical Exam Constitutional: WD/WN, vitals as above no acute distress Musculoskeletal: Shoulder: + surgical incision (Dressing C/D/I Right shoulder.); shoulder normal to inspection, no deformity, no skin erythema, no ecchymosis and no surgical drain present Psychiatric: A+Ox3, euthymic affect Results & Data Vital Signs (Past 12 Hours) Vital Signs Temp Pulse Pulse Resp BP Pulse Ox 02/10/19 07:56 36.6 C 70 18 120/84 95 02/10/19 03:04 36.9 C 79 16 109/70 93 02/10/19 01:43 36.6 C 78 18 118/72 93 02/10/19 00:35 36.9 C 89 16 121/76 93 02/09/19 23:35 36.8 C 94 H 16 117/75 95 02/09/19 23:07 36.7 C 88 16 124/77 96 02/09/19 22:35 36.7 C 85 18 123/84 94 02/09/19 22:20 36.5 C 84 14 117/97 96 02/09/19 22:10 79 19 135/75 96 02/09/19 22:00 81 16 128/91 95 02/09/19 21:50 83 19 123/74 97 02/09/19 21:42 36.8 C 82 18 139/101 H 97
[2019-02-10] MEDS ORDERED: DOCUSATE SODIUM 100 MG CAP PO SCH (09:00)
[2019-02-10] MEDS ORDERED: MULTIVITAMIN TAB PO SCH (09:00)
--- NOTE | 2019-02-10 19:58 | Discharge Summary ---
Date of Service February 10, 2019 Admission HPI Per Admitting Provider 53 year old male with no significant past medical history presents for continued right shoulder pain. He has long standing bilateral shoulder pain and recently underwent left total shoulder arthroplasty with good relief. He has failed conservative measures including cortisone injections and anti-inflammatory medications. He does have significant osteoarthritis of his right shoulder. Patient denies headaches, sweats, fevers, chills, double vision, blurred vision, cough, sore throat, dysphagia, chest pain, sob, wheezing, n/v/d/c, numbness, tingling, fatigue, urinary symptoms, mood disorders. ROS positive for right shoulder pain and stiffness. Admission Exam Per Admitting Provider Constitutional: well developed and well nourished; no acute distress Eyes: PERRL, conjunctivae normal, anicteric sclerae ENMT: external ear and nose normal, oropharynx normal Neck: trachea midline, no thyromegaly Respiratory: normal respiratory effort, lungs clear to auscultation Cardiovascular: RRR, no murmur, no edema Musculoskeletal: Right shoulder: Decreased motion actively and passively secondary to pain, strength mildly decreased. Rotator cuff strength well preserved. Crepitus on ROM. Positive impingement signs. Skin: no rashes, warm and dry Neurologic: patellar DTR's 2+ bilat, sensation intact Psychiatric: A+Ox3, euthymic affect Principal Diagnosis Right shoulder osteoarthritis Discharge Exam Constitutional: WD/WN, vitals as above no acute distress Musculoskeletal: Shoulder: + surgical incision (Dressing C/D/I Right shoulder.); shoulder normal to inspection, no deformity, no skin erythema, no ecchymosis and no surgical drain present Psychiatric: A+Ox3, euthymic affect Discharge Data Allergies Allergy/AdvReac Type Severity Reaction Status Date / Time aspirin AdvReac Unknown ADVISED TO Verified 02/09/19 13:21 AVOID HX STOMACH ULCER Consultations 02/09/19 22:33 Consult Case Management - Discharge Planning Routine Procedures Performed Operation Date: 02/09/19 07:00 Actual Procedures p Right Total Shoulder Arthroplasty(Right) - Carlo Hillman MD Ordered Studies 02/09/19 17:55 US - OR guided needle placemen Routine Hospital Course (1) Primary osteoarthritis, right shoulder: Patient presented for same day admission following right total shoulder arthroplasty on 02/09/19. He tolerated procedure well. The Patient had an uneventful hospital course. Post-operatively, his activity was progressed and w ell tolerated. They participated in PT. Labs remained stable- lowest hemoglobin recorded: 12.9. Pain controlled on oral medications. Please refer to daily progress notes and PT notes for complete details. After exam on 02/10/19, patient was felt to be stable for discharge home with plans on participating in outpatient PT. Patient will f/u in the office in about 2 weeks for further evaluation including x-rays and incision check, sooner if having any issues or concerns. Lab Results 02/10/19 02/10/19 Range/Units 05:35 05:35 WBC 10.62 (4.8-10.8) K/uL RBC 4.07 L (4.7-6.1) M/uL Hgb 12.9 L (14.0-18.0) g/dL Hct 38.6 L (42-52) % MCV 94.8 (80-100) fL MCH 31.7 (25-34) pg MCHC 33.4 (32-36) g/dL RDW Std Deviation 47.1 H (36.4-46.3) fL RDW Coeff of Gerry 13.5 (11.5-14.5) % Plt Count 178 (130-400) K/uL MPV 9.8 (7.4-10.4) fL Immature Gran % (Auto) 0.2 % Neut % (Auto) 86.8 % Lymph % (Auto) 6.8 % [place] % (Auto) 6.2 % Eos % (Auto) 0.0 % Baso % (Auto) 0.0 % Immature Gran # (Auto) 0.02 (0.00-0.02) K/uL Neut # (Auto) 9.22 H (1.4-6.5) K/uL Lymph # (Auto) 0.72 L (1.2-3.4) K/uL [place] # (Auto) 0.66 H (0.11-0.59) K/uL Eos # (Auto) 0.00 (0-0.5) K/uL Baso # (Auto) 0.00 (0-0.2) K/uL Sodium 139 (136-145) mmol/L Potassium 4.2 (3.5-5.1) mmol/L Chloride 108 H (98-107) mmol/L Carbon Dioxide 27 (21-32) mmol/L Anion Gap 4.0 (3-11) BUN 14 (7-18) mg/dl Creatinine 1.00 (0.6-1.4) mg/dl Est Cr Clr Drug Dosing 101.6 ml/min Est GFR ( Amer) 99.2 Est GFR (Non-Af Amer) 85.5 BUN/Creatinine Ratio 13.8 (10-20) Glucose 137 H (70-99) mg/dl Calcium 8.3 L (8.5-10.1) mg/dl Total Time Total Time Spent Total Time Spent (In Minutes): 20 Discharge Plan Discharge Items Patient Disposition: Home - Self-Care Reason For Visit: RIGHT SHOULDER OSTEOARTHRITIS Discharge Diagnosis: right shoulder osteoarthritis Activity: Per Instructions section Non-emergency contact: Surgeon Call non-emergency contact if: your pain is not controlled, your pain is worsening and your temperature is above 101 Follow-up/Referrals: Eliezer Banks Jr, MD [Primary Care Provider] - Diet: Regular Addtl Attending Provider Instructions: ACTIVITY RECOMMENDATIONS: SELF CARE INSTRUCTIONS AFTER TOTAL SHOULDER ARTHROPLASTY A. You may do daily exercises as taught in physical therapy while in hospital. No lifting with the operative arm. Please schedule your outpatient physical therapy appointment to begin within 2-3 days after leaving the hospital. Specific restrictions will be written on your physical therapy prescription that is provided to you. B. You are to wear your sling/immobilizer at all times EXCEPT when performing your daily exercises, participating in physical therapy and for hygiene purposes. C. You may perform dry, daily dressing changes. Please keep your incision covered. You may shower 48 hours after surgery. Do not apply soap or any ointment/lotions directly over incision. Do not soak incision in bath tub/swimming pool. D. You may use ice as needed to operative shoulder. SPECIAL CARE INSTRUCTIONS: MEDICATION INSTRUCTIONS: VERY IMPORTANT TO READ AND REVIEW A. There are a few signs you need to watch for after you are home. Call [facility] at [phone] if you experience any of the followin. Increased severe shoulder pain. Some pain is expected especially when you exercise. 2. Increased swelling in you shoulder or arm; pain or swelling in either upper extremity. 3. Any fluid drainage from the incision. 4. Shortness of breath or chest pain. B. Please call [facility] at [phone] if you have any questions or concerns about your operation or recovery. C. Call your physician if: 1. Temperature is greater than 101 degrees (F). 2. Pain is not relieved by prescribed pain medications. 3. Increase drainage or redness from incision. 4. Unanswered questions or concerns. FOLLOW UP VISIT: Please call [facility] at [phone] to schedule a follow up appointment with Dr. Kee or his PA in 12-14 days from your surgery date. Pending Studies at Discharge: No Stand-Alone Forms: My [facility] [employer], Opioid Pain Management, Smoking Cessation Medications and DC Order Prescriptions: New acetaminophen 500 mg Tablet 1,000 mg PO Q8 Qty: 100 RF: 0 oxycodone 5 mg Tablet 5 - 10 mg PO Q4H PRN (Reason: pain) Qty: 30 RF: 0 Discontinued naproxen sodium [Aleve] 220 mg Tablet 440 mg PO BID PRN (Reason: Pain) RF: 0 Discharge Orders: Discharge Order (Routine); Ordered 02/10/19 Ordered By: Samuel Romero/Other Patient Handouts: Surgery Prevent DVT After Admission Data Admit Date/Time: 02/09/19 22:03 Attending Provider: Carlo Hillman Admit Provider: Carlo Hillman Primary Care Provider: Eliezer Banks Jr Other Interventions: Discharge Summary Assessment (RN) Last Done: 02/10/19 10:01 DC Date/Time DO NOT enter until pt leaves facility: 02/10/19 11:57
[2019-02-10] MEDS ORDERED: SENNA 8.6 MG TAB PO SCH (21:00)
== END 2019-02-10 11:57 | disposition home or self-care (01) | DRG 483 ==
LOC: ASU 12:37 → 3E 22:03